=== PATIENT | female | born 1935 | race Caucasian/White ===

== ENCOUNTER 2017-09-08 21:05 | Inpatient (IN) | payer OTHER ==
[~2017-09-08] VITALS: Ht 157.5 cm; Wt 48.0 kg
[2017-09-08 21:44] VITALS: BP 160/73; PULSE 99; RESP 18; TEMP 98.6; O2SAT 100
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
[2017-09-09 01:42] LABS: AUTOMATED NEUTROPHIL # 6.7 TH/MM3 (1.8-7.7); BASOPHIL % 0.5 % (0.0-2.0); EOSINOPHIL # 0.1 TH/MM3 (0-0.4); EOSINOPHIL % 0.6 % (0.0-4.0); HEMATOCRIT 37.6 % (35.0-46.0); HEMO FLAGS DIFF FINAL; LYMPH % 19.4 % (9.0-44.0); LYMPHOCYTE # 1.8 TH/MM3 (1.0-4.8); MEAN CELL VOLUME 96.3 FL (80.0-100.0); MEAN CORPUSCULAR HGB CONC 33.3 % (32.0-36.0); MONO % 6.7 % (0.0-8.0); NEUT % 72.8 % (16.0-70.0); PLATELET COUNT 215 TH/MM3 (150-450); RED CELL DISTRIBUTION WIDTH 13.9 % (11.6-17.2); WHITE BLOOD COUNT 9.2 TH/MM3 (4.0-11.0)
[2017-09-09 02:13] VITALS: BP 118/56; PULSE 87; RESP 16; TEMP 98.9; O2SAT 98
[2017-09-09 02:22] LABS: ALT (GPT) 19 U/L (10-53); ANION GAP 7 MEQ/L (5-15); AST (GOT) 24 U/L (15-37); BICARBONATE 25.7 MEQ/L (21.0-32.0); BLOOD UREA NITROGEN 10 MG/DL (7-18); CHLORIDE 107 MEQ/L (98-107); GLOMERULAR FILTRATION RATE 100 ML/MIN (>89); POTASSIUM 3.5 MEQ/L (3.5-5.1); SODIUM (NA) 140 MEQ/L (136-145)
[2017-09-09 02:25] LABS: ALCOHOL LESS THAN 3 MG/DL (0-5)
[2017-09-09 02:32] LABS: ALKALINE PHOSPHATASE 61 U/L (45-117); TOTAL BILIRUBIN ADULT 0.2 MG/DL (0.2-1.0)
[2017-09-09 06:00] VITALS: BP 133/67; PULSE 83; RESP 18; TEMP 99.3; O2SAT 96
[2017-09-09 10:04] VITALS: BP 117/59; PULSE 72; RESP 16
[2017-09-09] MEDS ORDERED: MAGNESIUM HYDROXIDE SUSP 30 ML CUP PO PRN (11:30)
[2017-09-09] MEDS ORDERED: ACETAMINOPHEN 325 MG TAB PO PRN (11:30)
[2017-09-09] MEDS ORDERED: LORazepam 2 MG/ML VIAL IM PRN (11:30)
[2017-09-09] MEDS ORDERED: ALUMINUM/MAGNESIUM/SIMETH 30 ML CUP PO PRN (11:30)
[2017-09-09] MEDS ORDERED: LORazepam 0.5 MG TAB PO PRN (11:30)
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
[2017-09-09 18:24] VITALS: BP 108/53; PULSE 91; RESP 16; TEMP 98.2; O2SAT 95
[2017-09-10 05:57] VITALS: BP 122/58; PULSE 72; RESP 16; TEMP 97.3; O2SAT 97
--- NOTE | 2017-09-10 07:52 | HHI.PR ---
Subjective Remarks Complaints of some indigestion, did not eat in the morning yet. No n/v/d/c. Has a good appetite. No fever or chills. Pleasant Objective Vitals Vital Signs Date Time Temp Pulse Resp B/P (MAP) Pulse Ox O2 Delivery O2 Flow Rate FiO2 09/10/17 05:57 97.3 72 16 122/58 (79) 97 09/09/17 18:24 98.2 91 16 108/53 (71) 95 09/09/17 13:34 09/09/17 10:04 72 16 117/59 (78) Room Air I/O 09/09/17 09/09/17 09/09/17 09/10/17 09/10/17 09/10/17 07:00 15:00 23:00 07:00 15:00 23:00 Intake Total 840 ml 0 ml Balance 840 ml 0 ml Intake Oral 840 ml 0 ml # Voids 4 2 Result Diagram: 09/09/1712009/09/17 012 Objective Remarks GENERAL: This is a well-nourished, well-developed patient, in no apparent distress. CARDIOVASCULAR: Regular rate and rhythm without murmurs, gallops, or rubs. RESPIRATORY: Clear to auscultation. Breath sounds equal bilaterally. No wheezes , rales, or rhonchi. GASTROINTESTINAL: Abdomen soft, non-tender, nondistended. No hepato-splenomegaly , or palpable masses. No guarding. MUSCULOSKELETAL: Extremities without clubbing, cyanosis, or edema. No joint tenderness, effusion, or edema noted. No calf tenderness. Negative Homans sign bilaterally. NEUROLOGICAL: Awake and alert. Cranial nerves II through XII intact. Motor and sensory grossly within normal limits. Five out of 5 muscle strength in all muscle groups. Normal speech. A/P Problem List: (1) Medical clearance for psychiatric admission ICD Code: Z00.8 - Encounter for other general examination Status: Acute (2) Alzheimer's dementia with behavioral disturbance ICD Code: G30.8 - Other Alzheimer's disease; F02.81 - Dementia in other diseases classified elsewhere with behavioral disturbance (3) Dementia in other diseases classified elsewhere with behavioral disturbance ICD Code: F02.81 - Dementia in other diseases classified elsewhere with behavioral disturbance Assessment and Plan 82 yo F without significant PMH with Psychosis management per psych Poor dentition change diet to soft diet as patient can't eat. Add famotidine for dyspepsia Encourage PO intake Laxatives antiemetics as need . Do reconcile meds. patient says she is not taking any meds. Resume home meds as appropriate DVT ppx early ambulation Discussed Condition With patient, nurse Thank you for this consult, will follow along Dot Caballero MD Sep 10, 2017 07:52
[2017-09-10 09:31] LABS: AUTOMATED NEUTROPHIL # 4.3 TH/MM3 (1.8-7.7); BASOPHIL % 0.5 % (0.0-2.0); EOSINOPHIL # 0.1 TH/MM3 (0-0.4); EOSINOPHIL % 1.4 % (0.0-4.0); HEMATOCRIT 38.3 % (35.0-46.0); HEMO FLAGS DIFF FINAL; LYMPH % 28.8 % (9.0-44.0); LYMPHOCYTE # 2.1 TH/MM3 (1.0-4.8); MEAN CELL VOLUME 95.4 FL (80.0-100.0); MEAN CORPUSCULAR HEMOGLOBIN 32.6 PG (27.0-34.0); MEAN CORPUSCULAR HGB CONC 34.2 % (32.0-36.0); MONO % 8.6 % (0.0-8.0); NEUT % 60.7 % (16.0-70.0); PLATELET COUNT 215 TH/MM3 (150-450); RED BLOOD COUNT 4.01 MIL/MM3 (4.00-5.30); RED CELL DISTRIBUTION WIDTH 13.6 % (11.6-17.2); WHITE BLOOD COUNT 7.1 TH/MM3 (4.0-11.0)
[2017-09-10 10:05] LABS: ANION GAP 7 MEQ/L (5-15); AST (GOT) 24 U/L (15-37); BICARBONATE 26.8 MEQ/L (21.0-32.0); BLOOD UREA NITROGEN 6 MG/DL (7-18); CHLORIDE 103 MEQ/L (98-107); GLOMERULAR FILTRATION RATE 98 ML/MIN (>89); SODIUM (NA) 137 MEQ/L (136-145)
[2017-09-10] MEDS ORDERED: FAMOTIDINE 20 MG TAB PO ONE (10:30)
[2017-09-10 10:35] LABS: ALKALINE PHOSPHATASE 59 U/L (45-117); ALT (GPT) 14 U/L (10-53); HDL CHOLESTEROL 73.3 MG/DL (40.0-60.0); LDL CHOLESTEROL 97 MG/DL (0-99); TOTAL BILIRUBIN ADULT 0.4 MG/DL (0.2-1.0)
[2017-09-10 11:40] LABS: HEMOGLOBIN A1a 1.3 %; HEMOGLOBIN A1b 1.9 %; HEMOGLOBIN Ao 83.8 %; HEMOGLOBIN LA1C 2.1 %; HEMOGLOBIN P3 4.3 %
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
[2017-09-10] MEDS ORDERED: FAMO20TA2 PO (11:51)
--- NOTE | 2017-09-10 16:06 | EKG ---
Date Performed: 09/10/2017 Time Performed: 07:15:14 PTAGE: 82 years EKG: Sinus rhythm NORMAL ECG NO PREVIOUS TRACING DOCTOR: Gabriella Burr Interpretating Date/Time 09/10/2017 16:06:19
[2017-09-10] MEDS ORDERED: FAMOTIDINE 20 MG TAB PO SCH (21:00)
== END 2017-09-10 15:15 | disposition home or self-care (01) | DRG 882 ==
LOC: EDBD 21:05 → NEPJ 21:05 → NEDA 09-09 11:20 → H4EA 09-09 13:15
PROVIDERS: ADMIT Student in an Organized Health Care Education/Training Program; ATTEND Student in an Organized Health Care Education/Training Program
DX: F43.24 Adjustment disorder with disturbance of conduct (principal); G30.9 Alzheimer's disease, unspecified; F02.81 Dementia in other diseases classified elsewhere, unspecified severity, with behavioral disturbance; F29 Unspecified psychosis not due to a substance or known physiological condition; K30 Functional dyspepsia
CPT/HCPCS: 80053; 80061; 80307; 82306; 82607; 83036; 84443; 85025; 93005; 99285

== ENCOUNTER 2018-02-06 13:57 | Inpatient (IN) | payer MEDICAID, OTHER ==
[~2018-02-06] VITALS: Ht 160 cm; Wt 31.3 kg
[~2018-02-06 13:57] MED LIST: FAMO20TA2 PO
[2018-02-06 14:17] VITALS: BP 145/69; PULSE 92; RESP 20; TEMP 97.7; O2SAT 99
--- NOTE | 2018-02-06 16:11 | PD ---
HPI Chief Complaint: Medical Clearance Time Seen by Provider: 15:56 Travel History International Travel<30 days: No Contact w/Intl Traveler<30days: No Traveled to known affect area: No History of Present Illness HPI 82-year-old Welsh-speaking female originally from [place], is brought in by her granddaughters with history of dementia with increased agitation and aggressive behavior in her home. Patient has refused to be seen by doctors, and is currently not taking any medications. She fell today hitting the back of her head. There was no obvious loss of consciousness. Patient also hurt her left ring finger when she fell. It is noticed to have ecchymosis and decreased use secondary to pain. There is no other obvious injury at this time. No open wounds or abrasions Patient has not had recent fever, chills, nausea, vomiting, or other constitutional symptoms. She has no known drug allergies. PFSH Past Medical History Alzheimer's Disease: Yes Tetanus Vaccination: Unknown ?: Not Past Surgical History Surgical History: No Previous Surgery Social History Alcohol Use: No Tobacco Use: Yes Substance Use: No Allergies-Medications (Allergen,Severity, Reaction): Coded Allergies: No Known Allergies (Unverified , 09/08/17) Reported Meds & Prescriptions Reported Meds & Active Scripts Active Review of Systems Except as stated in HPI: all other systems reviewed are Neg General / Constitutional: No: Fever Eyes: No: Visual changes HENT: No: Headaches Cardiovascular: No: Chest Pain or Discomfort Respiratory: No: Shortness of Breath Gastrointestinal: No: Abdominal Pain Genitourinary: No: Dysuria Musculoskeletal: No: Pain Skin: No Rash Neurologic: Positive: Other (Dementia), No: Weakness, Dizziness, Syncope, Focal Abnormalities, Coordination Problem, Tremor, Ataxia, Headache, Change in Mentation, Slurred Speech, Paresthesia, Incontinence, Seizures, Sensory Disturbance Psychiatric: Positive: Other (Increasing combative behavior), No: Anxiety, Depression, Suicidal Ideations, Disorder of Thought, Mood Disorder, Substance Abuse, Homicidal Ideation Endocrine: No: Polydipsia Hematologic/Lymphatic: No: Easy Bruising Physical Exam Narrative GENERAL: Patient is evaluated with the help of her granddaughters. She appears somewhat anxious but otherwise in no obvious distress per SKIN: Warm and dry. Normal color. Normal turgor. Patient has a large "bump" to the posterior scalp without abrasion or open wound. Patient also has ecchymosis to the left proximal ring finger with mild swelling. HEAD: Normocephalic. Patient is a tender bump to the posterior scalp. No obvious bony deformity. EYES: Pupils equal and round. No scleral icterus. No injection or drainage. ENT: No nasal bleeding or discharge. Mucous membranes pink and moist. No dental injury. Pharynx is clear. Airway is patent. Patient appears to have a chronic right otitis externa. Left TM is normal. There is no facial pain with palpation. NECK: Trachea midline. No bony tenderness or step-off. Range of motion is fluid and nontender CARDIOVASCULAR: Regular rate and rhythm. No murmurs gallops or rubs RESPIRATORY: No accessory muscle use. Clear to auscultation. Breath sounds equal bilaterally. GASTROINTESTINAL: Abdomen soft, non-tender, nondistended. Hepatic and splenic margins not palpable. MUSCULOSKELETAL: Extremities without clubbing, cyanosis, or edema. No obvious deformities. Patient has guarded movement of the left hand and ring finger. There are no other significant findings. NEUROLOGICAL: Awake and alert. No obvious cranial nerve deficits. Motor grossly within normal limits. Five out of 5 muscle strength in the arms and legs. Normal speech. PSYCHIATRIC: Appropriate mood and affect; insight and judgment normal. Data Data Last Documented VS Vital Signs Date Time Temp Pulse Resp B/P (MAP) Pulse Ox O2 Delivery O2 Flow Rate FiO2 02/06/18 17:16 99 02/06/18 14:17 97.7 92 20 145/69 (94) Orders Orders Electrocardiogram (02/06/18 16:02) Complete Blood Count With Diff (02/06/18 16:02) Comprehensive Metabolic Panel (02/06/18 16:02) Prothrombin Time / Inr (Pt) (02/06/18 16:02) Act Partial Throm Time (Ptt) (02/06/18 16:02) Thyroid Stimulating Hormone (02/06/18 16:02) Urinalysis - C+S If Indicated (02/06/18 16:02) Chest, Single Ap (02/06/18 16:02) Ct Brain W/O Iv Contrast(Rout) (02/06/18 16:02) Blood Glucose (02/06/18 16:02) Ecg Monitoring (02/06/18 16:02) Iv Access Insert/Monitor (02/06/18 16:02) Oximetry (02/06/18 16:02) Sodium Chloride 0.9% Flush (Ns Flush) (02/06/18 16:15) Lorazepam (Ativan) (02/06/18 16:15) Urine Culture (02/06/18 17:10) Lorazepam Inj (Ativan Inj) (02/06/18 18:45) Restraints Non-Violent KORTNEY.Q3H (02/06/18 18:45) Consult Neurosurgery (02/06/18 ) Admit Order (Ed Use Only) (02/06/18 19:08) Labs Laboratory Tests Test 02/06/18 17:10 White Blood Count 8.8 TH/MM3 Red Blood Count 3.46 MIL/MM3 Hemoglobin 11.4 GM/DL Hematocrit 33.2 % Mean Corpuscular Volume 96.1 FL Mean Corpuscular Hemoglobin 33.1 PG Mean Corpuscular Hemoglobin Concent 34.4 % Red Cell Distribution Width 13.2 % Platelet Count 197 TH/MM3 Mean Platelet Volume 8.7 FL Neutrophils (%) (Auto) 75.6 % Lymphocytes (%) (Auto) 15.5 % Monocytes (%) (Auto) 8.4 % Eosinophils (%) (Auto) 0.3 % Basophils (%) (Auto) 0.2 % Neutrophils # (Auto) 6.7 TH/MM3 Lymphocytes # (Auto) 1.4 TH/MM3 Monocytes # (Auto) 0.7 TH/MM3 Eosinophils # (Auto) 0.0 TH/MM3 Basophils # (Auto) 0.0 TH/MM3 CBC Comment DIFF FINAL Differential Comment Prothrombin Time 10.3 SEC Prothromb Time International Ratio 1.0 RATIO Activated Partial Thromboplast Time 23.3 SEC Urine Color LIGHT-YELLOW Urine Turbidity CLEAR Urine pH 6.0 Urine Specific [place] 1.004 Urine Protein NEG mg/dL Urine Glucose (UA) NEG mg/dL Urine Ketones NEG mg/dL Urine Occult Blood SMALL Urine Nitrite NEG Urine Bilirubin NEG Urine Urobilinogen LESS THAN 2.0 MG/DL Urine Leukocyte Esterase NEG Urine RBC 2 /hpf Urine WBC LESS THAN 1 /hpf Urine Bacteria OCC /hpf Urine Mucus FEW /lpf Microscopic Urinalysis Comment CATH-CULTURE IND Blood Urea Nitrogen 8 MG/DL Creatinine 0.60 MG/DL Random Glucose 119 MG/DL Total Protein 6.3 GM/DL Albumin 3.5 GM/DL Calcium Level 9.3 MG/DL Alkaline Phosphatase 65 U/L Aspartate Amino Transf (AST/SGOT) 35 U/L Alanine Aminotransferase (ALT/SGPT) 25 U/L Total Bilirubin 0.2 MG/DL Sodium Level 143 MEQ/L Potassium Level 3.3 MEQ/L Chloride Level 112 MEQ/L Carbon Dioxide Level 24.3 MEQ/L Anion Gap 7 MEQ/L Estimat Glomerular Filtration Rate 96 ML/MIN Thyroid Stimulating Hormone 3rd Gen 1.160 uIU/ML [facility] Medical Decision Making Medical Screen Exam Complete: Yes Emergency Medical Condition: Yes Differential Diagnosis Fall with head injury. Left finger contusion. Possible fracture. Dementia with combative behavior. Narrative Course Patient is medically stable at time of exam. Labs ordered including CBC, CMP, urinalysis, coagulation studies, and TSH. Chest x-ray and CT of the brain is ordered. EKG is ordered. Patient is given 0.5 mg lorazepam p.o. EKG shows sinus rhythm with inferior myocardial infarction of indeterminate age. No acute ST changes are noted. Chest x-ray shows no acute findings per radiology. CT scan shows: CONCLUSION: 1. Small linear area of suspected subarachnoid hemorrhage seen in the right inferior parietal lobe. 2. Atrophy with expansion of the extra axial spaces. 3. Nasal bone fractures. The age of these fractures is not known. Call was placed to Dr. Chapman, and the patient's findings were discussed. He stated he would review the CT scan and call me back with disposition recommendations. Dr. Chapman came and saw the patient and he recommended keeping the patient overnight for observation. Calls placed to the block hand who recommended admission to the floor rather than the ICU. Patient was discussed with Dr. Garcia who agreed to admit the patient overnight. Diagnosis Primary Impression: Fall Qualified Codes: W19.XXXA - Unspecified fall, initial encounter Additional Impressions: SAH (subarachnoid hemorrhage) Alzheimer's dementia with behavioral disturbance Qualified Codes: G30.9 - Alzheimer's disease, unspecified; F02.81 - Dementia in other diseases classified elsewhere with behavioral disturbance Admitting Information Admitting Physician Requests: Admit Condition: Stable Lebron Best Feb 06, 2018 16:11
[2018-02-06] MEDS ORDERED: LORazepam 0.5 MG TAB PO ONE (16:15)
[2018-02-06] MEDS ORDERED: SODIUM CHLORIDE 0.9% FLUSH 10 ML FLUSH IV FLUSH PRN ×2 (16:15→19:15)
--- NOTE | 2018-02-06 16:43 | RADRPT ---
EXAM DATE/TIME: 02/06/2018 16:18 [facility] COMPARISON: No previous studies available for comparison. INDICATIONS : Chest Pain MEDICAL HISTORY : None. SURGICAL HISTORY : None. ENCOUNTER: Initial ACUITY: 1 day PAIN SCORE: 6/10 LOCATION: chest FINDINGS: A single view of the chest demonstrates the lungs to be symmetrically aerated without evidence of mas s, infiltrate or effusion. The cardiomediastinal contours are unremarkable. Osseous structures are intact. CONCLUSION: No acute disease. Kevin Maurer MD on February 06, 2018 at 16:40 Board Certified Radiologist. This report was verified electronically.
[2018-02-06 17:16] VITALS: O2SAT 99
--- NOTE | 2018-02-06 17:44 | RADRPT ---
EXAM DATE/TIME: 02/06/2018 16:43 [facility] COMPARISON: No previous studies available for comparison. INDICATIONS : Trauma, fall today. Posterior cephalgia. RADIATION DOSE: 46.29 CTDIvol (mGy) MEDICAL HISTORY : Alzheimer's SURGICAL HISTORY : None. ENCOUNTER: Initial ACUITY: 1 day PAIN SCALE: 7/10 LOCATION: Bilateral occipital head TECHNIQUE: Multiple contiguous axial images were obtained of the head. Using automated exposure control and adj ustment of the mA and/or kV according to patient size, radiation dose was kept as low as reasonably a chievable to obtain optimal diagnostic quality images. DICOM format image data is available electro nically for review and comparison. FINDINGS: CEREBRUM: There is a small linear area of high density material seen in the right posterior inferior parietal l obe likely related to a small focal areas of subarachnoid hemorrhage. The ventricles are normal for age. No evidence of midline shift, mass lesion, or acute infarction. There is expansion of the extr a-axial spaces over the frontal lobes. POSTERIOR FOSSA: The cerebellum and brainstem are intact. The 4th ventricle is midline. The cerebellopontine angle i s unremarkable. EXTRACRANIAL: The visualized portion of the orbits is intact. SKULL: The calvaria is intact. No evidence of skull fracture. There appears to be nasal bone fractures, sof t tissue swelling is not seen. It should be correlated if the patient has an acute injury in this reg ion. There is increased density in the right middle ear and in the temporal air cells. The mastoid ai r cells are not well-aerated on either side. CONCLUSION: 1. Small linear area of suspected subarachnoid hemorrhage seen in the right inferior parietal lobe. 2. Atrophy with expansion of the extra axial spaces. 3. Nasal bone fractures. The age of these fractures is not known. Kevin Maurer MD on February 06, 2018 at 17:37 Board Certified Radiologist. This report was verified electronically.
[2018-02-06 17:45] LABS: AUTOMATED NEUTROPHIL # 6.7 TH/MM3 (1.8-7.7); BASOPHIL % 0.2 % (0.0-2.0); EOSINOPHIL % 0.3 % (0.0-4.0); HEMATOCRIT 33.2 % (35.0-46.0); HEMOGLOBIN 11.4 GM/DL (11.6-15.3); LYMPH % 15.5 % (9.0-44.0); LYMPHOCYTE # 1.4 TH/MM3 (1.0-4.8); MEAN CELL VOLUME 96.1 FL (80.0-100.0); MEAN CORPUSCULAR HEMOGLOBIN 33.1 PG (27.0-34.0); MEAN CORPUSCULAR HGB CONC 34.4 % (32.0-36.0); MEAN PLATELET VOLUME 8.7 FL (7.0-11.0); MONO % 8.4 % (0.0-8.0); MONOCYTE # 0.7 TH/MM3 (0-0.9); NEUT % 75.6 % (16.0-70.0); PLATELET COUNT 197 TH/MM3 (150-450); RED BLOOD COUNT 3.46 MIL/MM3 (4.00-5.30); RED CELL DISTRIBUTION WIDTH 13.2 % (11.6-17.2); WHITE BLOOD COUNT 8.8 TH/MM3 (4.0-11.0)
[2018-02-06 17:47] LABS: BACTERIA, URINE OCC /hpf; BILIRUBIN, URINE NEG (NEG); BLOOD, URINE SMALL (NEG); GLUCOSE,URINE NEG (NEG); KETONE, URINE NEG (NEG); MUCUS URINE FEW /lpf (OCC); NITRITE,URINE NEG (NEG); URINE COLOR LIGHT-YELLOW (YELLW/STRAW); URINE LEUKOCYTE ESTERASE NEG (NEG)
[2018-02-06 17:52] LABS: PROTHROMBIN TIME - PATIENT 10.3 SEC (9.8-11.6)
[2018-02-06 18:11] LABS: ALBUMIN 3.5 GM/DL (3.4-5.0); AST (GOT) 35 U/L (15-37); BICARBONATE 24.3 MEQ/L (21.0-32.0); BLOOD UREA NITROGEN 8 MG/DL (7-18); CALCIUM 9.3 MG/DL (8.5-10.1); CHLORIDE 112 MEQ/L (98-107); GLOMERULAR FILTRATION RATE 96 ML/MIN (>89); GLUCOSE,RANDOM 119 MG/DL (74-106); SODIUM (NA) 143 MEQ/L (136-145)
[2018-02-06 18:22] LABS: ALKALINE PHOSPHATASE 65 U/L (45-117); ALT (GPT) 25 U/L (10-53); TOTAL BILIRUBIN ADULT 0.2 MG/DL (0.2-1.0); TOTAL PROTEIN 6.3 GM/DL (6.4-8.2)
[2018-02-06] MEDS ORDERED: LORazepam 2 MG/ML VIAL IM ONE (18:45)
--- NOTE | 2018-02-06 19:04 | MB ---
cc: ,Emmanuel Chapman DATE: 02/06/2018 CHIEF COMPLAINT: Fall. HISTORY OF PRESENT ILLNESS: This is an 82-year-old female patient with a long history of dementia with increasing agitation and aggressive behavior in her home. The patient apparently fell today, striking the back of her head. There was no obvious loss of consciousness. She was brought to the ER for evaluation. CT scan was performed, which was abnormal, and neurosurgery consult was placed. PAST MEDICAL HISTORY: Remarkable for dementia. No other medical problems are noted. PAST SURGICAL HISTORY: No surgical history is available. SOCIAL HISTORY: Indicates use of tobacco. ALLERGIES: SHE HAS NO KNOWN ALLERGIES. MEDICATIONS: She does not take any active medications. REVIEW OF SYSTEMS: Not obtainable. PHYSICAL EXAMINATION: VITAL SIGNS: Shows a blood pressure 145/69, respirations 20, pulse of 92, temperature of 97.7. GENERAL: Shows elderly female, thin, somewhat agitated. HEENT: Shows evidence of a small scalp contusion posteriorly. NECK: Supple with good carotid pulses bilaterally. CHEST: Symmetric. LUNGS: Clear. HEART: Shows a regular rhythm with normal heart sounds. ABDOMEN: Soft and nontender. EXTREMITIES: Show bruising over the right taylor. NEUROLOGIC: The patient is alert and awake. Her speech is fluent. She is confused. She is somewhat agitated. She tends to follow some commands with difficulty. Cranial nerves 2-12 appear intact. Motor exam is 5+/5. Sensory exam is intact to touch and deep tendon reflexes are trace at all sites. DIAGNOSTIC DATA: Review of a CT scan of the brain shows evidence of a very mild amount of subarachnoid hemorrhage posteriorly in the parietal lobe. No mass effect is appreciated. OVERALL IMPRESSION: Traumatic subarachnoid hemorrhage, small. PLAN: Admit the patient for further evaluation and observation to the intensive care unit with repeat CT in the morning. Emmanuel ZHANG/LONA , 06:51 PM , 07:03 PM SY
[2018-02-06] MEDS ORDERED: ONDANSETRON HCL 4 MG/2 ML VIAL IVP PRN (19:15)
[2018-02-06] MEDS ORDERED: SENNOSIDES 8.6 MG TAB PO PRN (19:15)
[2018-02-06] MEDS ORDERED: MAGNESIUM HYDROXIDE SUSP 30 ML CUP PO PRN (19:15)
[2018-02-06 19:30] VITALS: BP 137/85; PULSE 78; RESP 20; O2SAT 100
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
[2018-02-06 20:00] VITALS: BP 161/82; PULSE 76; RESP 20; O2SAT 100
[2018-02-06 20:30] VITALS: BP 148/76; PULSE 72; RESP 20; O2SAT 100
[2018-02-06] MEDS: DOCUSATE SODIUM 50 MG/SENNA 8.6 MG TAB PO SCH (21:00)
[2018-02-06 21:17] VITALS: BP 135/66; PULSE 76; RESP 18; TEMP 98.6; O2SAT 98
[2018-02-06] MEDS: SODIUM CHLORIDE 0.9% FLUSH 10 ML FLUSH IV FLUSH SCH (21:23)
[2018-02-07] VITALS: BP 123/60; PULSE 68; RESP 18; TEMP 99.4; O2SAT 98
[2018-02-07 04:45] VITALS: BP 125/60; PULSE 75; RESP 18; TEMP 97.9; O2SAT 97
[2018-02-07 08:00] VITALS: BP 127/60; PULSE 79; RESP 17; TEMP 97.7; O2SAT 97
[2018-02-07 08:12] LABS: BASOPHIL % 0.4 % (0.0-2.0); EOSINOPHIL % 0.2 % (0.0-4.0); HEMATOCRIT 35.7 % (35.0-46.0); HEMOGLOBIN 12.3 GM/DL (11.6-15.3); LYMPH % 20.3 % (9.0-44.0); LYMPHOCYTE # 1.7 TH/MM3 (1.0-4.8); MEAN CORPUSCULAR HEMOGLOBIN 32.7 PG (27.0-34.0); MEAN CORPUSCULAR HGB CONC 34.4 % (32.0-36.0); MEAN PLATELET VOLUME 8.8 FL (7.0-11.0); MONO % 6.8 % (0.0-8.0); MONOCYTE # 0.6 TH/MM3 (0-0.9); NEUT % 72.3 % (16.0-70.0); PLATELET COUNT 199 TH/MM3 (150-450); RED BLOOD COUNT 3.76 MIL/MM3 (4.00-5.30); WHITE BLOOD COUNT 8.3 TH/MM3 (4.0-11.0)
[2018-02-07 08:31] LABS: ALBUMIN 3.8 GM/DL (3.4-5.0); AST (GOT) 26 U/L (15-37); BICARBONATE 25.6 MEQ/L (21.0-32.0); BLOOD UREA NITROGEN 7 MG/DL (7-18); CALCIUM 9.7 MG/DL (8.5-10.1); CHLORIDE 109 MEQ/L (98-107); CREATININE 0.61 MG/DL (0.50-1.00); GLOMERULAR FILTRATION RATE 94 ML/MIN (>89); GLUCOSE,RANDOM 112 MG/DL (74-106); SODIUM (NA) 141 MEQ/L (136-145)
[2018-02-07 08:33] LABS: ALT (GPT) 22 U/L (10-53)
[2018-02-07 08:35] LABS: ALKALINE PHOSPHATASE 70 U/L (45-117); TOTAL BILIRUBIN ADULT 0.4 MG/DL (0.2-1.0); TOTAL PROTEIN 6.8 GM/DL (6.4-8.2)
[2018-02-07] MEDS: DOCUSATE SODIUM 50 MG/SENNA 8.6 MG TAB PO SCH ×2 (08:41→21:00)
[2018-02-07] MEDS: ACETAMINOPHEN 325 MG TAB PO PRN (08:41)
[2018-02-07] MEDS: SODIUM CHLORIDE 0.9% FLUSH 10 ML FLUSH IV FLUSH SCH ×2 (08:41→21:08)
--- NOTE | 2018-02-07 09:18 | RADRPT ---
EXAM DATE/TIME: 02/07/2018 08:13 [place] COMPARISON: CT BRAIN W/O CONTRAST, February 06, 2018, 16:43. INDICATIONS : Fall yesterday, hemorrhage RADIATION DOSE: 56.35 CTDIvol (mGy) MEDICAL HISTORY : Alzheimers SURGICAL HISTORY : None. ENCOUNTER: Subsequent ACUITY: 2 days PAIN SCALE: 4/10 LOCATION: cranial TECHNIQUE: Multiple contiguous axial images were obtained of the head. Using automated exposure control and adj ustment of the mA and/or kV according to patient size, radiation dose was kept as low as reasonably a chievable to obtain optimal diagnostic quality images. DICOM format image data is available electro nically for review and comparison. FINDINGS: CEREBRUM: There is severe generalized atrophy. Ventricles are normal in size. There is stable high density isabel g the right parietal mid convexity sulci. Otherwise, no midline shift, mass lesion, or acute infarcti on. No extra-axial fluid collections are seen. POSTERIOR FOSSA: The cerebellum and brainstem demonstrate no acute finding. The 4th ventricle is midline. The cerebe llopontine angle is unremarkable. EXTRACRANIAL: Visualized sinuses are clear. Nasal bones have a stable appearance. SKULL: The calvaria is intact. No evidence of skull fracture. CONCLUSION: 1. Stable noncontrast head CT with persistent high density along a right parietal sulcus suspicious f or subarachnoid hemorrhage. No new blood products are present. 2. Stable severe generalized atrophy. Kevin Encarnacion MD on February 07, 2018 at 9:10 Board Certified Radiologist. This report was verified electronically.
[2018-02-07] MEDS: LORazepam 2 MG/ML VIAL IV PUSH PRN ×3 (10:33→21:09)
--- NOTE | 2018-02-07 12:40 | HHI.NSPN ---
(Arnulfo Flynn) History Chief Complaint: Not verbalizing. (Arnulfo Flynn) Interval History This is an 82-year-old female patient with a long history of dementia with increasing agitation and aggressive behavior in her home. The patient apparently fell today, striking the back of her head. There was no obvious loss of consciousness. She was brought to the ER for evaluation. CT scan was performed, which was abnormal, and neurosurgery consult was placed. 02/07/18: Pt opens eyes to voice briefly. Was told she just received Ativan for restlessness. She is not verbalizing. She follows some simple commands in Scottish. (Arnulfo Flynn) System Review Comments Not able to obtain given clinical condition. (Arnulfo Flynn) Exam Results Vital Signs Date Time Temp Pulse Resp B/P (MAP) Pulse Ox O2 Delivery O2 Flow Rate FiO2 02/07/18 08:00 97.7 79 17 127/60 (82) 97 02/06/18 20:30 Room Air (Arnulfo Flynn) Physical Examination General: Pt awakens to voice briefly. Eyes: Pupils equal. Sclera anicteric. Resp: CTA bilaterally Heart: NSR no murmurs Abd: Soft positive bs Skin: No cyanosis or erythema Muscle: Moves all 4 extremities spontaneously. Moves toes to command. Neuro: Pt awakens to voice. Pupils 3mm bilaterally reactive bilaterally. Follows some simple commands in Scottish. Pt lethargic but was told she got Ativan for agitation. (Arnulfo Flynn) Lab, Micro, Other Results Last Impressions Head CT 02/07/18 0600 Signed Impressions: Service Date/Time: Wednesday, February 07, 2018 08:13 - CONCLUSION: 1. Stable noncontrast head CT with persistent high density along a right parietal sulcus suspicious for subarachnoid hemorrhage. No new blood products are present. 2. Stable severe generalized atrophy. Kevin Encarnacion MD Chest X-Ray 02/06/18 1602 Signed Impressions: Service Date/Time: Tuesday, February 06, 2018 16:18 - CONCLUSION: No acute disease. Kevin Maurer MD Laboratory Tests Test 02/06/18 17:10 02/07/18 07:36 White Blood Count 8.8 TH/MM3 8.3 TH/MM3 Red Blood Count 3.46 MIL/MM3 3.76 MIL/MM3 Hemoglobin 11.4 GM/DL 12.3 GM/DL Hematocrit 33.2 % 35.7 % Mean Corpuscular Volume 96.1 FL 95.0 FL Mean Corpuscular Hemoglobin 33.1 PG 32.7 PG Mean Corpuscular Hemoglobin Concent 34.4 % 34.4 % Red Cell Distribution Width 13.2 % 13.0 % Platelet Count 197 TH/MM3 199 TH/MM3 Mean Platelet Volume 8.7 FL 8.8 FL Neutrophils (%) (Auto) 75.6 % 72.3 % Lymphocytes (%) (Auto) 15.5 % 20.3 % Monocytes (%) (Auto) 8.4 % 6.8 % Eosinophils (%) (Auto) 0.3 % 0.2 % Basophils (%) (Auto) 0.2 % 0.4 % Neutrophils # (Auto) 6.7 TH/MM3 6.0 TH/MM3 Lymphocytes # (Auto) 1.4 TH/MM3 1.7 TH/MM3 Monocytes # (Auto) 0.7 TH/MM3 0.6 TH/MM3 Eosinophils # (Auto) 0.0 TH/MM3 0.0 TH/MM3 Basophils # (Auto) 0.0 TH/MM3 0.0 TH/MM3 CBC Comment DIFF FINAL DIFF FINAL Differential Comment Prothrombin Time 10.3 SEC Prothromb Time International Ratio 1.0 RATIO Activated Partial Thromboplast Time 23.3 SEC Urine Color LIGHT-YELLOW Urine Turbidity CLEAR Urine pH 6.0 Urine Specific [place] 1.004 Urine Protein NEG mg/dL Urine Glucose (UA) NEG mg/dL Urine Ketones NEG mg/dL Urine Occult Blood SMALL Urine Nitrite NEG Urine Bilirubin NEG Urine Urobilinogen LESS THAN 2.0 MG/DL Urine Leukocyte Esterase NEG Urine RBC 2 /hpf Urine WBC LESS THAN 1 /hpf Urine Bacteria OCC /hpf Urine Mucus FEW /lpf Microscopic Urinalysis Comment CATH-CULTURE IND Blood Urea Nitrogen 8 MG/DL 7 MG/DL Creatinine 0.60 MG/DL 0.61 MG/DL Random Glucose 119 MG/DL 112 MG/DL Total Protein 6.3 GM/DL 6.8 GM/DL Albumin 3.5 GM/DL 3.8 GM/DL Calcium Level 9.3 MG/DL 9.7 MG/DL Alkaline Phosphatase 65 U/L 70 U/L Aspartate Amino Transf (AST/SGOT) 35 U/L 26 U/L Alanine Aminotransferase (ALT/SGPT) 25 U/L 22 U/L Total Bilirubin 0.2 MG/DL 0.4 MG/DL Sodium Level 143 MEQ/L 141 MEQ/L Potassium Level 3.3 MEQ/L 3.5 MEQ/L Chloride Level 112 MEQ/L 109 MEQ/L Carbon Dioxide Level 24.3 MEQ/L 25.6 MEQ/L Anion Gap 7 MEQ/L 6 MEQ/L Estimat Glomerular Filtration Rate 96 ML/MIN 94 ML/MIN Thyroid Stimulating Hormone 3rd Gen 1.160 uIU/ML (Arnulfo Flynn) Medical Decision Making Impression and Plan A: 82 y/o FM with small amount of subarachnoid hemorrhage posteriorly in the parietal lobe. No mass effect is appreciated. OVERALL IMPRESSION: Traumatic subarachnoid hemorrhage, small. PLAN: Continue to monitor Neuro exam Continue with current care DVT prophylaxis with SCDs. (Arnulfo Flynn) Attending Statement The exam, history, and the medical decision-making described in the above note were completed with the assistance of the mid-level provider. I reviewed and agree with the findings presented. I attest that I had a [id number] encounter with the patient on the same day, and personally performed and documented my assessment and findings in the medical record. Stable follow-up CT scan examination. Continue with conservative treatment measures and observation. (Robin Patel MD) Arnulfo Flynn Feb 07, 2018 12:40 Robin Patel MD Feb 07, 2018 13:48
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
[2018-02-07 16:28] VITALS: BP 140/69; PULSE 90; RESP 20; TEMP 99.5; O2SAT 95
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
[2018-02-07] MEDS: QUEtiapine FUMARATE 25 MG TAB PO SCH (21:05)
[2018-02-07] MEDS: cefTRIAXone INJ 1,000 MG in SODIUM CHLORIDE 0.9% INJ 100 ML IV SCH (21:07)
--- NOTE | 2018-02-07 21:14 | EKG ---
Date Performed: 02/06/2018 Time Performed: 17:34:38 PTAGE: 82 years EKG: Sinus rhythm INFERIOR MYOCARDIAL INFARCTION ABNORMAL ECG PREVIOUS TRACING : 09/10/2017 07.15 Since the previous tracing, no significant change noted DOCTOR: Delvin Malave Interpretating Date/Time 02/07/2018 21:13:16
[2018-02-07 21:50] VITALS: BP 123/88; PULSE 86; RESP 19; TEMP 98.8; O2SAT 96
[2018-02-08] VITALS: BP 118/89; PULSE 80; RESP 18; TEMP 98; O2SAT 96
[2018-02-08 04:00] VITALS: BP 125/89; PULSE 89; RESP 19; TEMP 98; O2SAT 96
[2018-02-08 08:00] VITALS: BP 136/74; PULSE 90; RESP 20; TEMP 98.1; O2SAT 98
[2018-02-08] MEDS: SODIUM CHLORIDE 0.9% FLUSH 10 ML FLUSH IV FLUSH SCH ×2 (09:00→22:01)
[2018-02-08] MEDS: DOCUSATE SODIUM 50 MG/SENNA 8.6 MG TAB PO SCH ×2 (09:55→21:00)
[2018-02-08] MEDS: QUEtiapine FUMARATE 25 MG TAB PO SCH ×2 (09:55→22:01)
[2018-02-08 12:00] VITALS: BP 166/85; PULSE 99; RESP 20; TEMP 99.1; O2SAT 97
--- NOTE | 2018-02-08 13:55 | HHI.NSPN ---
(Arnulfo Flynn) History Chief Complaint: Not verbalizing. (Arnulfo Flynn) Interval History This is an 82-year-old female patient with a long history of dementia with increasing agitation and aggressive behavior in her home. The patient apparently fell today, striking the back of her head. There was no obvious loss of consciousness. She was brought to the ER for evaluation. CT scan was performed, which was abnormal, and neurosurgery consult was placed. 02/07/18: Pt opens eyes to voice briefly. Was told she just received Ativan for restlessness. She is not verbalizing. She follows some simple commands in Iranian. 02/08/18: Pt more awake today. She follows commands in Iranian for me. Not verbalizing. (Arnulfo Flynn) System Review Comments Not able to obtain as pt is not verbalizing to any questions. (Arnulfo Flynn) Exam Results Vital Signs Date Time Temp Pulse Resp B/P (MAP) Pulse Ox O2 Delivery O2 Flow Rate FiO2 02/08/18 12:00 99.1 99 20 166/85 (112) 97 02/06/18 20:30 Room Air Intake and Output 02/08/18 02/08/18 02/08/18 07:59 15:59 23:59 Intake Total 0 ml Balance 0 ml (Arnulfo Flynn) Physical Examination General: Pt awake today. Eyes: Pupils equal. Sclera anicteric. Resp: CTA bilaterally Heart: NSR no murmurs Abd: Soft positive bs Skin: No cyanosis or erythema Muscle: Moves all 4 extremities spontaneously. Follows commands in Iranian. Neuro: Pt awakens to voice. Pupils 3mm bilaterally reactive bilaterally. Follows commands in Iranian. Pt more awake today. Not verbalizing. (Arnulfo Flynn) Lab, Micro, Other Results Last Impressions Head CT 02/07/18 0600 Signed Impressions: Service Date/Time: Wednesday, February 07, 2018 08:13 - CONCLUSION: 1. Stable noncontrast head CT with persistent high density along a right parietal sulcus suspicious for subarachnoid hemorrhage. No new blood products are present. 2. Stable severe generalized atrophy. Kevin Encarnacion MD Chest X-Ray 02/06/18 1602 Signed Impressions: Service Date/Time: Tuesday, February 06, 2018 16:18 - CONCLUSION: No acute disease. Kevin Maurer MD 02/08/18 02/08/18 02/09/18 14:59 22:59 06:59 # Voids 2 (Arnulfo Flynn) Medical Decision Making Impression and Plan A: 82 y/o FM with small amount of subarachnoid hemorrhage posteriorly in the parietal lobe. No mass effect is appreciated. OVERALL IMPRESSION: Traumatic subarachnoid hemorrhage, small. PLAN: Continue to monitor Neuro exam Continue with current care DVT prophylaxis with SCDs. (Arnulfo Flynn) Attending Statement The exam, history, and the medical decision-making described in the above note were completed with the assistance of the mid-level provider. I reviewed and agree with the findings presented. I attest that I had a [id number] encounter with the patient on the same day, and personally performed and documented my assessment and findings in the medical record. (Robin Patel MD) Arnulfo Flynn February 08, 2018 13:55 Robin Patel MD February 08, 2018 15:49
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
[2018-02-08 16:00] VITALS: BP 150/82; PULSE 103; RESP 20; TEMP 98; O2SAT 96
[2018-02-08] MEDS: DRONABINOL 2.5 MG CAP PO SCH (16:00)
[2018-02-08 20:00] VITALS: BP 177/92; PULSE 97; RESP 17; TEMP 98.3; O2SAT 94
[2018-02-08] MEDS: cefTRIAXone INJ 1,000 MG in SODIUM CHLORIDE 0.9% INJ 100 ML IV SCH (22:01)
[2018-02-09] VITALS (9 sets, daily range): BP systolic 129–160; BP diastolic 73–80; PULSE 98–107; RESP 16–22; TEMP 97.5–98.4; O2SAT 94–100
[2018-02-09] MEDS ORDERED: RESP: ALBUTEROL 2.5 MG/IPRATROPIUM 0.5 MG NEB (PRN) NEB (03:15)
[2018-02-09] MEDS: DEXTROSE 5% IN WATE 1000ML INJ 1,000 ML IV SCH ×2 (03:30→22:35)
[2018-02-09] MEDS ORDERED: RESP: ACETYLCYSTEINE 10% 10 ML NEB NEB PRN (03:45)
--- NOTE | 2018-02-09 03:54 | HHI.PR ---
Addendum to Inpatient Note Addendum Reason: Additional Documentation Additional Information S: Resident team received call at 0310 about [facility]. Went to evaluate pt who is a 82yo Persian-speaking only female with a PMH of violent dementia admitted for traumatic subarachnoid hemorrhage. She was having increasing shortness of breath and increased respiratory rate per nursing staff. They state that she chronically mouth breathes and had dry mucous membranes. Respiratory staff suctioned thick sputum and blood. Respiratory staff stated that pt has dry mucous plugging in her lower pharynx. Nursing staff also stated that she has not eaten or drank anything in 3 days and that it is hard to try to get her to do so. O: VS: 173/76, heart rate 104, satting 97% on 2 L nasal cannula General: Thin elderly female sitting up in bed in soft restraints breathing through her mouth, in no acute distress Skin: Dry. Tented Throat: Dry mucous membranes Cardiovascular: RRR, no murmurs, rubs, or gallops detected Respiratory: CTAB with upper airway transmission Abdomen: Soft, nontender, nondistended next A/P: Dehydration -D5W 1 L at 60 mL/hr was started before our arrival Tachypnea- pt satting well on NC -Witnessed respiratory staff suction large thick brownish plug of mucus from patient's oropharynx along with blood -Ordered Mucomyst neb due to thick sputum and mucus plugging per respiratory -Wet reading of CXR showed hyperinflation of lungs SDW Ashley Sarabia MD R1 February 09, 2018 03:54
--- NOTE | 2018-02-09 04:15 | RADRPT ---
EXAM DATE/TIME: 02/09/2018 03:15 [facility] COMPARISON: CHEST SINGLE AP, February 06, 2018, 16:18. INDICATIONS : Shortness of breath. MEDICAL HISTORY : None. SURGICAL HISTORY : None. ENCOUNTER: Subsequent ACUITY: 4 - 6 days PAIN SCORE: Non-responsive. LOCATION: Bilateral chest FINDINGS: A single view of the chest demonstrates the lungs to be symmetrically hyperaerated. No acute infiltra te or effusion. Heart size is normal. Osseous structures are intact. CONCLUSION: Hyperinflation with no acute cardiopulmonary process. Joe Esteves MD on February 09, 2018 at 4:13 Board Certified Radiologist. This report was verified electronically.
[2018-02-09] MEDS: RESP: ALBUTEROL 2.5 MG/IPRATROPIUM 0.5 MG NEB (SCH) NEB ×4 (04:38→21:22)
[2018-02-09] MEDS: SODIUM CHLORIDE 0.9% FLUSH 10 ML FLUSH IV FLUSH SCH ×2 (09:00→21:00)
--- NOTE | 2018-02-09 10:04 | HHI.NSPN ---
(Arnulfo Flynn) History Chief Complaint: Not verbalizing. (Arnulfo Flynn) Interval History This is an 82-year-old female patient with a long history of dementia with increasing agitation and aggressive behavior in her home. The patient apparently fell today, striking the back of her head. There was no obvious loss of consciousness. She was brought to the ER for evaluation. CT scan was performed, which was abnormal, and neurosurgery consult was placed. 02/07/18: Pt opens eyes to voice briefly. Was told she just received Ativan for restlessness. She is not verbalizing. She follows some simple commands in Indonesian. 02/08/18: Pt more awake today. She follows commands in Indonesian for me. Not verbalizing. 02/09/18: Pt awake and alert. She tries to get out of bed and has restraints to UEs and requires reminders to stay in bed. Denies headache or nausea. follows simple commands. (Arnulfo Flynn) Review of Systems General: Negative for: fever, chills, insomnia Respiratory: Negative for: shortness of breath, cough, sputum Cardiovascular: Negative for: chest pain Gastrointestinal: Negative for: nausea, vomitting, diarrhea, constipation ( Arnulfo Flynn) Exam Results Vital Signs Date Time Temp Pulse Resp B/P (MAP) Pulse Ox O2 Delivery O2 Flow Rate FiO2 02/09/18 08:13 98.2 107 18 152/79 (103) 98 02/09/18 03:15 5.00 02/09/18 03:00 Nasal Cannula (Arnulfo Flynn) Physical Examination General: Pt awake and alert. Attempts to get oob. Eyes: Pupils equal. Sclera anicteric. Resp: CTA bilaterally Heart: NSR no murmurs Abd: Soft positive bs Skin: No cyanosis or erythema Muscle: Moves all 4 extremities spontaneously. Follows commands in Indonesian. Neuro: Pt awakens to voice. Pupils 3mm bilaterally reactive bilaterally. Follows commands in Indonesian. Pt more awake today. Not verbalizing. (Arnulfo Flynn) Lab, Micro, Other Results Last Impressions Chest X-Ray 02/09/18 0000 Signed Impressions: Service Date/Time: Friday, February 09, 2018 03:15 - CONCLUSION: Hyperinflation with no acute cardiopulmonary process. Joe Esteves MD Head CT 02/07/18 0600 Signed Impressions: Service Date/Time: Wednesday, February 07, 2018 08:13 - CONCLUSION: 1. Stable noncontrast head CT with persistent high density along a right parietal sulcus suspicious for subarachnoid hemorrhage. No new blood products are present. 2. Stable severe generalized atrophy. Kevin Encarnacion MD Laboratory Tests Test 02/09/18 05:00 Blood Gas Puncture Site LT RADIAL Blood Gas Patient Temperature 98.6 Blood Gas HCO3 26 mmol/L Blood Gas Base Excess 2.1 mmol/L Blood Gas Oxygen Saturation 95 % Arterial Blood pH 7.46 Arterial Blood Partial Pressure CO2 37 mmHg Arterial Blood Partial Pressure O2 86 mmHg Arterial Blood Oxygen Content 16.9 Vol % Arterial Blood Carboxyhemoglobin 1.6 % Arterial Blood Methemoglobin 1.1 % Blood Gas Hemoglobin 12.7 G/DL Oxygen Delivery Device NASAL CANNULA Blood Gas Liter Flow 4 L/M (Arnulfo Flynn) Medical Decision Making Impression and Plan A: 82 y/o FM with small amount of subarachnoid hemorrhage posteriorly in the parietal lobe. No mass effect is appreciated. OVERALL IMPRESSION: Traumatic subarachnoid hemorrhage, small. PLAN: Continue to monitor Neuro exam Continue with current care DVT prophylaxis with SCDs. (Arnulfo Flynn) Attending Statement The exam, history, and the medical decision-making described in the above note were completed with the assistance of the mid-level provider. I reviewed and agree with the findings presented. I attest that I had a [id number] encounter with the patient on the same day, and personally performed and documented my assessment and findings in the medical record. (Robin Patel MD) Arnulfo Flynn February 09, 2018 10:04 Robin Patel MD February 09, 2018 13:17
[2018-02-09] MEDS: DOCUSATE SODIUM 50 MG/SENNA 8.6 MG TAB PO SCH ×2 (10:08→22:29)
[2018-02-09] MEDS: QUEtiapine FUMARATE 25 MG TAB PO SCH (10:08)
[2018-02-09] MEDS: DRONABINOL 2.5 MG CAP PO SCH ×2 (12:33→16:26)
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
[2018-02-09] MEDS ORDERED: PILL SPLITTER OTHER PRN (16:00)
[2018-02-09] MEDS ORDERED: QUEtiapine FUMARATE 25 MG TAB PO SCH (21:00)
[2018-02-09] MEDS: cefTRIAXone INJ 1,000 MG in SODIUM CHLORIDE 0.9% INJ 100 ML IV SCH (22:28)
[2018-02-10] VITALS (9 sets, daily range): BP systolic 130–163; BP diastolic 62–84; PULSE 75–98; RESP 18–22; TEMP 97.2–98.2; O2SAT 92–99
[2018-02-10] MEDS: RESP: ALBUTEROL 2.5 MG/IPRATROPIUM 0.5 MG NEB (SCH) NEB ×4 (04:00→20:41)
[2018-02-10] MEDS: SODIUM CHLORIDE 0.9% FLUSH 10 ML FLUSH IV FLUSH SCH ×2 (07:42→20:21)
[2018-02-10] MEDS: DOCUSATE SODIUM 50 MG/SENNA 8.6 MG TAB PO SCH ×2 (07:42→20:22)
[2018-02-10] MEDS: LORazepam 2 MG/ML VIAL IV PUSH PRN (07:43)
[2018-02-10] MEDS: DRONABINOL 2.5 MG CAP PO SCH (10:10)
[2018-02-10] MEDS: DEXTROSE 5% IN WATE 1000ML INJ 1,000 ML IV SCH (11:22)
--- NOTE | 2018-02-10 12:32 | RADRPT ---
EXAM DATE/TIME: 02/10/2018 11:58 [facility] COMPARISON: No previous studies available for comparison. INDICATIONS : Contusion. MEDICAL HISTORY : None. SURGICAL HISTORY : None. ENCOUNTER: Subsequent ACUITY: 2 days PAIN SCORE: Non-responsive. LOCATION: Left Hand FINDINGS: Three view examination of the left hand demonstrates a mildly comminuted nondisplaced fracture involv ing the distal fourth middle phalanx with ill-defined fracture lines extend into the distal interphal angeal joint. There is mild overlying soft tissue swelling. The carpal bones appear intact. The inte rphalangeal and metacarpophalangeal joints are intact with mild degenerative changes with sclerosis. Bony mineralization is normal. There is overlying artifact from IV tubing. CONCLUSION: Nondisplaced fracture of the fourth middle phalanx. Ho Whalen MD on February 10, 2018 at 12:26 Board Certified Radiologist. This report was verified electronically.
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
[2018-02-10] MEDS: cefTRIAXone INJ 1,000 MG in SODIUM CHLORIDE 0.9% INJ 100 ML IV SCH (20:21)
[2018-02-11] MEDS: RESP: ALBUTEROL 2.5 MG/IPRATROPIUM 0.5 MG NEB (SCH) NEB ×4 (03:43→21:33)
[2018-02-11 04:00] VITALS: BP 135/66; PULSE 97; RESP 18; TEMP 97.9; O2SAT 97
[2018-02-11] MEDS: SODIUM CHLORIDE 0.9% FLUSH 10 ML FLUSH IV FLUSH SCH ×2 (07:27→20:50)
[2018-02-11] MEDS: DOCUSATE SODIUM 50 MG/SENNA 8.6 MG TAB PO SCH ×2 (07:27→21:00)
[2018-02-11] MEDS: DEXTROSE 5% IN WATE 1000ML INJ 1,000 ML IV SCH (07:27)
[2018-02-11 08:00] VITALS: BP 110/79; PULSE 97; RESP 18; TEMP 98; O2SAT 98
[2018-02-11 09:00] VITALS: O2SAT 97
[2018-02-11 12:00] VITALS: BP 157/73; PULSE 106; RESP 18; TEMP 98.5; O2SAT 98
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
[2018-02-11] MEDS: traZODone HCL 50 MG TAB PO SCH ×2 (14:52→21:00)
[2018-02-11 16:00] VITALS: BP 166/97; PULSE 110; RESP 18; TEMP 98.6; O2SAT 96
[2018-02-11 20:00] VITALS: BP 168/79; PULSE 110; RESP 20; TEMP 98.9; O2SAT 92
[2018-02-11] MEDS: cefTRIAXone INJ 1,000 MG in SODIUM CHLORIDE 0.9% INJ 100 ML IV SCH (20:46)
[2018-02-12] VITALS (8 sets, daily range): BP systolic 130–161; BP diastolic 60–88; PULSE 54–113; RESP 18–20; TEMP 98–98.9; O2SAT 95–98
[2018-02-12] MEDS: RESP: ALBUTEROL 2.5 MG/IPRATROPIUM 0.5 MG NEB (SCH) NEB ×4 (02:52→21:19)
[2018-02-12] MEDS: traZODone HCL 50 MG TAB PO SCH (08:05)
[2018-02-12] MEDS: DOCUSATE SODIUM 50 MG/SENNA 8.6 MG TAB PO SCH ×2 (08:05→23:14)
[2018-02-12] MEDS: SODIUM CHLORIDE 0.9% FLUSH 10 ML FLUSH IV FLUSH SCH ×2 (08:06→21:00)
[2018-02-12] MEDS: DEXTROSE 5% IN WATE 1000ML INJ 1,000 ML IV SCH ×2 (14:05→23:12)
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
[2018-02-12] MEDS ORDERED: traZODone HCL 50 MG TAB PO ONE (22:00)
[2018-02-12] MEDS: cefTRIAXone INJ 1,000 MG in SODIUM CHLORIDE 0.9% INJ 100 ML IV SCH (23:13)
[2018-02-13 00:15] VITALS: BP 127/65; PULSE 80; RESP 18; TEMP 97.9; O2SAT 97
[2018-02-13 02:45] VITALS: BP 120/80; PULSE 78; RESP 17; TEMP 98; O2SAT 98
[2018-02-13] MEDS: RESP: ALBUTEROL 2.5 MG/IPRATROPIUM 0.5 MG NEB (SCH) NEB (03:43)
[2018-02-13] MEDS: DEXTROSE 5% IN WATE 1000ML INJ 1,000 ML IV SCH (06:45)
[2018-02-13 08:00] VITALS: BP 152/74; PULSE 93; RESP 18; TEMP 98.8; O2SAT 93
[2018-02-13] MEDS: SODIUM CHLORIDE 0.9% FLUSH 10 ML FLUSH IV FLUSH SCH ×2 (09:00→21:00)
[2018-02-13] MEDS: DOCUSATE SODIUM 50 MG/SENNA 8.6 MG TAB PO SCH ×2 (09:36→21:00)
[2018-02-13] MEDS: DRONABINOL 2.5 MG CAP PO SCH ×2 (09:38→16:46)
[2018-02-13 12:00] VITALS: BP 138/65; PULSE 75; RESP 18; TEMP 98.5; O2SAT 96
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
[2018-02-13 16:00] VITALS: BP 143/71; PULSE 86; RESP 18; TEMP 98.9; O2SAT 92
[2018-02-13 21:50] VITALS: BP 129/88; PULSE 88; RESP 19; TEMP 98; O2SAT 98
[2018-02-13] MEDS: cefTRIAXone INJ 1,000 MG in SODIUM CHLORIDE 0.9% INJ 100 ML IV SCH (22:22)
[2018-02-14] VITALS: BP 118/88; PULSE 88; RESP 20; TEMP 98; O2SAT 96
[2018-02-14 03:50] VITALS: BP 130/64; PULSE 66; RESP 16; TEMP 97.2; O2SAT 99
[2018-02-14 08:00] VITALS: BP 128/83; PULSE 92; RESP 16; TEMP 98.1; O2SAT 98
[2018-02-14] MEDS: SODIUM CHLORIDE 0.9% FLUSH 10 ML FLUSH IV FLUSH SCH ×2 (08:41→21:00)
[2018-02-14] MEDS: DOCUSATE SODIUM 50 MG/SENNA 8.6 MG TAB PO SCH ×2 (08:41→21:00)
[2018-02-14] MEDS: LORazepam 2 MG/ML VIAL IV PUSH PRN (08:47)
[2018-02-14] MEDS: DRONABINOL 2.5 MG CAP PO SCH ×2 (10:50→17:06)
[2018-02-14 12:00] VITALS: BP 134/84; PULSE 90; RESP 19; TEMP 98.7; O2SAT 99
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
[2018-02-14 16:00] VITALS: BP 127/77; PULSE 75; RESP 16; TEMP 98.5; O2SAT 98
--- NOTE | 2018-02-14 16:48 | RADRPT ---
EXAM DATE/TIME: 02/14/2018 15:46 [facility] COMPARISON: CT BRAIN W/O CONTRAST, February 06, 2018, 16:43. CT BRAIN W/O CONTRAST, February 07, 2018, 8:13. INDICATIONS : F/U subarachnoid hemorrhage. RADIATION DOSE: 45.19 CTDIvol (mGy) MEDICAL HISTORY : Alzheimer's SURGICAL HISTORY : None. ENCOUNTER: Subsequent ACUITY: 1 week PAIN SCALE: 0/10 LOCATION: cranial TECHNIQUE: Multiple contiguous axial images were obtained of the head. Using automated exposure control and adj ustment of the mA and/or kV according to patient size, radiation dose was kept as low as reasonably a chievable to obtain optimal diagnostic quality images. DICOM format image data is available electro nically for review and comparison. FINDINGS: CEREBRUM: The ventricles and cortical sulci are widened. There is expansion of the extra-axial spaces over the frontal lobes. The previously seen subarachnoid hemorrhage in the right parietal region has resolved/ evolve. No acute hemorrhage is seen. No evidence of midline shift, mass lesion, hemorrhage or acute infarction. No extra-axial fluid collections are seen. POSTERIOR FOSSA: The cerebellum and brainstem are intact. The 4th ventricle is midline. The cerebellopontine angle i s unremarkable. EXTRACRANIAL: The visualized portion of the orbits is intact. SKULL: The calvaria is intact. No evidence of skull fracture. CONCLUSION: 1. No acute abnormality or hemorrhage is seen. 2. Atrophy. Kevin Maurer MD on February 14, 2018 at 16:43 Board Certified Radiologist. This report was verified electronically.
[2018-02-14] MEDS: DEXTROSE 5% IN WATE 1000ML INJ 1,000 ML IV SCH ×3 (17:06→23:02)
[2018-02-14 20:30] VITALS: BP 134/63; PULSE 102; RESP 18; TEMP 98; O2SAT 97
[2018-02-14] MEDS: cefTRIAXone INJ 1,000 MG in SODIUM CHLORIDE 0.9% INJ 100 ML IV SCH ×2 (22:56→23:05)
[2018-02-15 00:44] VITALS: BP 157/89; PULSE 89; RESP 18; TEMP 97.6; O2SAT 94
[2018-02-15 04:53] VITALS: BP 137/61; PULSE 88; RESP 18; TEMP 97.7; O2SAT 95
[2018-02-15 07:40] VITALS: BP 133/72; PULSE 92; RESP 18; TEMP 97.8; O2SAT 99
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
[2018-02-15] MEDS: SODIUM CHLORIDE 0.9% FLUSH 10 ML FLUSH IV FLUSH SCH ×2 (09:00→20:18)
[2018-02-15 09:09] LABS: AUTOMATED NEUTROPHIL # 7.7 TH/MM3 (1.8-7.7); BASOPHIL % 0.4 % (0.0-2.0); EOSINOPHIL # 0.1 TH/MM3 (0-0.4); HEMATOCRIT 37.8 % (35.0-46.0); HEMOGLOBIN 13.3 GM/DL (11.6-15.3); LYMPH % 10.9 % (9.0-44.0); LYMPHOCYTE # 1.1 TH/MM3 (1.0-4.8); MEAN CELL VOLUME 91.6 FL (80.0-100.0); MEAN CORPUSCULAR HEMOGLOBIN 32.3 PG (27.0-34.0); MEAN CORPUSCULAR HGB CONC 35.3 % (32.0-36.0); MONO % 9.5 % (0.0-8.0); MONOCYTE # 0.9 TH/MM3 (0-0.9); NEUT % 78.2 % (16.0-70.0); PLATELET COUNT 236 TH/MM3 (150-450); RED BLOOD COUNT 4.12 MIL/MM3 (4.00-5.30); RED CELL DISTRIBUTION WIDTH 12.2 % (11.6-17.2); WHITE BLOOD COUNT 9.8 TH/MM3 (4.0-11.0)
[2018-02-15 09:41] LABS: CALCIUM 9.2 MG/DL (8.5-10.1); CREATININE 0.35 MG/DL (0.50-1.00)
[2018-02-15] MEDS: DOCUSATE SODIUM 50 MG/SENNA 8.6 MG TAB PO SCH ×2 (09:56→20:18)
[2018-02-15] MEDS ORDERED: POTASSIUM CHLORIDE 10 MEQ CONTROLLED RELEASE TAB PO ONE (10:00)
[2018-02-15 11:50] VITALS: BP 160/79; PULSE 98; RESP 18; TEMP 97.5; O2SAT 96
[2018-02-15] MEDS ORDERED: POTASSIUM CHLORIDE 25 MEQ EFFERVESCENT TAB PO ONE ×2 (12:00→16:00)
[2018-02-15] MEDS: SODIUM CHLOR 0.9% 1000 ML INJ 1,000 ML IV SCH ×2 (12:13→23:20)
[2018-02-15] MEDS: DRONABINOL 2.5 MG CAP PO SCH ×2 (12:13→18:03)
[2018-02-15] MEDS ORDERED: POTASSIUM CHLORIDE 20 MEQ CONTROLLED RELEASE TAB PO ONE (14:00)
[2018-02-15 16:08] VITALS: BP 150/72; PULSE 96; RESP 18; TEMP 97.3; O2SAT 99
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
[2018-02-15] MEDS: LACTULOSE SYRUP 20 GM/30 ML CUP PO PRN (20:18)
[2018-02-15 20:19] VITALS: BP 150/64; PULSE 121; RESP 20; TEMP 97.3; O2SAT 95
[2018-02-16 00:28] VITALS: BP 141/75; PULSE 103; RESP 20; TEMP 98; O2SAT 97
[2018-02-16] MEDS: DEXTROSE 5% IN WATE 1000ML INJ 1,000 ML IV SCH (01:25)
[2018-02-16 05:24] VITALS: BP 131/72; PULSE 89; RESP 20; TEMP 97.8; O2SAT 99
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
[2018-02-16 07:43] VITALS: BP 132/68; PULSE 76; RESP 18; TEMP 97.9; O2SAT 96
[2018-02-16] MEDS: SODIUM CHLORIDE 0.9% FLUSH 10 ML FLUSH IV FLUSH SCH ×2 (09:00→21:00)
[2018-02-16] MEDS: DOCUSATE SODIUM 50 MG/SENNA 8.6 MG TAB PO SCH ×2 (09:23→21:00)
[2018-02-16] MEDS: LACTULOSE SYRUP 20 GM/30 ML CUP PO PRN (09:26)
[2018-02-16 09:52] LABS: BICARBONATE 22.8 MEQ/L (21.0-32.0); CALCIUM 9.1 MG/DL (8.5-10.1); CREATININE 0.41 MG/DL (0.50-1.00)
[2018-02-16 12:12] VITALS: BP 140/76; PULSE 93; RESP 18; TEMP 97.9; O2SAT 98
--- NOTE | 2018-02-16 14:12 | HHI.HCPN ---
Reason for visit a. To assist with evaluation and management of symptoms including: Debility , decreased oral intake. b. To assist medical decision maker(s) with: better understanding of current medical conditions; weighing benefits/burdens of medical treatment options; making medical treatment decisions. . Subjective/Interval History Plan of care follow-up for further clarifications of goals of care. Patient seen in her room. Alert to self, disoriented as to place and situation. Patient is Uzbek speaker, visit conducted in Uzbek. Patient with repetitive speech, she was unable to tell me her name. Mostly nonsensical speech. Not following commands. Patient remains afebrile, stable hemodynamically. Tolerating room air with oxygen saturation in the mid to high 90s. Laboratory workup today revealing WBC 9.8, Hgb 13.3, sodium 131, potassium 3.6, BUN/creatinine 8/0.41. No new imaging for review. Patient with minimal oral intake. Nutrition assessment completed on 02/15/18. Patient's BMI 13.8, remains on Marinol twice daily. Artificial feeding recommended. . Family/friend interactions Bedside conversation with granddaughter Lucía Brewer. She confirmed patient is . She has 2 biological children, son Julius Brewer sustained a traumatic brain injury in June 2017, currently having memory issues and unable to participating medical decision making. Son Devonte Brewer resides in [place]. Obtain his contact information. Telephone conversation with patient' s son Devonte. Medical update provided. Reviewed patient's past medical history, psychosocial history. Reviewed events leading to this hospitalization , clinical course and current medical management. Reviewed diagnosis of severe dementia, reviewed likely trajectory of illness given patient's current condition. Reviewed difficult disposition secondary to behavioral disturbances and patient requiring four-point restraint. Reviewed risks, benefits and limitations of CPR, intubation and mechanical ventilation given patient's advanced dementia. Hospice philosophy and benefits introduced. Son wishing to discuss goals of care with additional family members. Goals of therapy remain aggressive at this time. . Advance Directives Living Will: Never completed Health Care Surrogate: Never completed Durable Power of Local Company Hazmat Driver: Never completed Advance Directive Specifics Health Care Surrogate(s): In the absence of advance directives, healthcare proxy decision making would fall to the majority of patient's children, reports of patient having 2 sons. One son Julius with TBI, incapacitated for medical decision-making. Therefore, healthcare proxy decision making falls to patient's son . Significant change in goals: Goals of therapy remain aggressive. Objective Vital Signs Date Time Temp Pulse Resp B/P (MAP) Pulse Ox O2 Delivery O2 Flow Rate FiO2 02/16/18 12:12 97.9 93 18 140/76 (97) 98 02/16/18 07:43 97.9 76 18 132/68 (89) 96 02/16/18 05:24 97.8 89 20 131/72 (91) 99 02/16/18 00:28 98.0 103 20 141/75 (97) 97 02/15/18 20:19 97.3 121 20 150/64 (92) 95 02/15/18 16:08 97.3 96 18 150/72 (98) 99 Intake & Output 02/16/18 02/16/18 07:00 19:00 # Voids 3 Physical Exam CONSTITUTIONAL/GENERAL: This is a thin, frail-looking female in no apparent distress. TUBES/LINES/DRAINS: PIV SKIN: No jaundice, rashes, or lesions. Ecchymoses on upper extremities. No wounds seen anteriorly. Skin temperature appropriate. Not diaphoretic. HEAD: Atraumatic. Normocephalic. EYES: Pupils equal and round and reactive. Extraocular motions intact. No scleral icterus. No injection or drainage ENT: Hearing grossly normal. Nose without bleeding or purulent drainage. Moist oral mucosa. NECK: Trachea midline. Supple, nontender. CARDIOVASCULAR: Regular rate and rhythm without murmurs, gallops, or rubs. No JVD. Peripheral pulses symmetric. RESPIRATORY/CHEST: Symmetric, unlabored respirations. Clear to auscultation. Breath sounds equal bilaterally. GASTROINTESTINAL: Abdomen soft, non-tender, nondistended. No guarding. Bowel sounds present. GENITOURINARY: Without palpable bladder distension. Mishra catheter in place. MUSCULOSKELETAL: Extremities without clubbing, cyanosis, or edema. No mottling or clubbing. Muscle atrophy to all 4 extremities. NEUROLOGICAL: Awake and alert to self. Confused as to place and situation. Verbal, mostly nonsensical speech in Uzbek. PSYCHIATRIC: Anxiety, agitation. . Diagnostic Tests Laboratory Laboratory Tests Test 02/15/18 07:09 02/15/18 14:40 02/15/18 20:50 02/16/18 08:35 White Blood Count 9.8 TH/MM3 (4.0-11.0) Red Blood Count 4.12 MIL/MM3 (4.00-5.30) Hemoglobin 13.3 GM/DL (11.6-15.3) Hematocrit 37.8 % (35.0-46.0) Mean Corpuscular Volume 91.6 FL (80.0-100.0) Mean Corpuscular Hemoglobin 32.3 PG (27.0-34.0) Mean Corpuscular Hemoglobin Concent 35.3 % (32.0-36.0) Red Cell Distribution Width 12.2 % (11.6-17.2) Platelet Count 236 TH/MM3 (150-450) Mean Platelet Volume 9.0 FL (7.0-11.0) Neutrophils (%) (Auto) 78.2 % (16.0-70.0) Lymphocytes (%) (Auto) 10.9 % (9.0-44.0) Monocytes (%) (Auto) 9.5 % (0.0-8.0) Eosinophils (%) (Auto) 1.0 % (0.0-4.0) Basophils (%) (Auto) 0.4 % (0.0-2.0) Neutrophils # (Auto) 7.7 TH/MM3 (1.8-7.7) Lymphocytes # (Auto) 1.1 TH/MM3 (1.0-4.8) Monocytes # (Auto) 0.9 TH/MM3 (0-0.9) Eosinophils # (Auto) 0.1 TH/MM3 (0-0.4) Basophils # (Auto) 0.0 TH/MM3 (0-0.2) CBC Comment DIFF FINAL Differential Comment Blood Urea Nitrogen 5 MG/DL (7-18) 8 MG/DL (7-18) Creatinine 0.35 MG/DL (0.50-1.00) 0.41 MG/DL (0.50-1.00) Random Glucose 125 MG/DL (74-106) 88 MG/DL (74-106) Calcium Level 9.2 MG/DL (8.5-10.1) 9.1 MG/DL (8.5-10.1) Sodium Level 123 MEQ/L (136-145) 123 MEQ/L (136-145) 128 MEQ/L (136-145) 131 MEQ/L (136-145) Potassium Level 3.1 MEQ/L (3.5-5.1) 3.6 MEQ/L (3.5-5.1) Chloride Level 82 MEQ/L (98-107) 96 MEQ/L (98-107) Carbon Dioxide Level 29.0 MEQ/L (21.0-32.0) 22.8 MEQ/L (21.0-32.0) Anion Gap 12 MEQ/L (5-15) 12 MEQ/L (5-15) Estimat Glomerular Filtration Rate 179 ML/MIN (>89) 149 ML/MIN (>89) Result Diagram: 02/15/18 0709 02/16/18 0884 Assessment and Plan Disease Oriented Problem List: (1) Failure to thrive in adult (2) SAH (subarachnoid hemorrhage) (3) Dementia with aggressive behavior (4) Decreased oral intake (5) Urinary tract infection (6) Physical deconditioning Symptom Scale: (1) Debility 0-10 Scale: Unable to quantify (2) Decreased oral intake 0-10 Scale: Unable to quantify Pertinent Non-Medical Issues Psychosocial: Patient originally from [facility]. She is single, several years ago. It is reported that she has 2 sons, one residing locally and one in [place]. Patient has 3 granddaughters who reside locally. Spiritual: Jainism. Legal: No advance directives completed. Ethical issues impacting care: No ethical issues identified. . Important Contacts Son/HCP Devonte Brewer . Granddaughter Lucía Gormanlien Granddaughter Jessica Liyalonlien Granddaughter Adria Liyalyndon . Prognosis Mrs. Cobb is an 82-year-old female with a medical history significant for dementia with behavioral disturbances, hard of hearing and anxiety. Patient presented to emergency room on 02/06/18 for evaluation secondary to mechanical fall resulting in head injury. Head CT revealing small linear area of suspected subarachnoid hemorrhage in the right inferior parietal lobe, atrophy and nasal bone fractures -age unknown. Neurosurgery consulted, recommending medical management/monitoring. Patient with severe dementia and failure to thrive. Patient's BMI is 13.8, minimal oral intake for the past few weeks. Patient at high risk for further complications, continued decline and . . Code Status: Full Code Plan * CODE STATUS: Full code. * HEALTHCARE DECISION-MAKING: Patient unable to participating medical decision making secondary to severe dementia. Family reports that no advance directives have been completed. In the absence of advance directives, healthcare proxy decision making would fall to the majority of patient's children, for which patient has 2 sons. Son Julius with TBI, incapacitated for medical decision- making. Therefore, healthcare proxy decision making falls to patient's son Devotne Brewer. Devonte has accepted this role and is fully supported by additional family members. . * GOALS OF CARE: Goals of therapy remain aggressive at this time. Palliative care spoke with healthcare proxy son Devonte. Reviewed at length patient's current clinical condition and prognosis in the setting of severe dementia and failure to thrive. Discussed risks, benefits and limitations of artificial nutrition via NG tube versus PEG tube. Hospice philosophy and services introduced. Devonte wishing to speak with additional family members for further goals of care discussion. Family looking into long-term placement. Difficult disposition secondary to patient's aggressive behavior. * SYMPTOMS: = Agitation: Dementia with behavioral disturbances. Psych following. Seroquel and trazodone discontinued secondary to sedation. Lorazepam 1 mg available as needed. = Decreased appetite/oral intake: Patient currently on Marinol 2.5mg BID. Eating approximately 50% of her meals. Concerns regarding patient's ability to meet her nutritional needs, nutrition assessment completed -recommending artificial nutrition. Patient with BMI of 13.8 with progressive weight loss. Family to make a decision regarding artificial nutrition versus comfort directed care with hospice. * Palliative care contact information has been provided to family. * Palliative care will continue to follow up for further clarification of goals of care as patient's clinical course continues to evolve. . Time Spent Total Floor Time (mins): 41 (Total time to include reviewing summarization of available medical records, physical exam, goals of care conversation with granddaughter Lucía and son Devonte.) >50% Counseling/Coord of Care: Yes Attestation To help prompt me to consider important information that might be impacting today's encounter and assessment, information from prior notes written by myself or my colleagues may have been "brought forward" into today's note. My signature on this note, however, is an attestation that I personally performed the exam, history, and/or decision-making noted today, and, unless otherwise indicated, the interactions with patient, family, and staff as well as the review of records all occurred today. I also attest that the listed assessment and stated plan reflect my best clinical judgment today based on the combination of historical information, prior notes, and today's exam/ interactions. When time spent is documented, it refers only to time spent today by the signer, or if indicated, combined time spent today by collaborating physician/nurse practitioner. Gabrielle Toribio February 16, 2018 14:12
[2018-02-16] MEDS: DRONABINOL 2.5 MG CAP PO SCH ×2 (14:59→16:00)
[2018-02-16] MEDS: SODIUM CHLOR 0.9% 1000 ML INJ 1,000 ML IV SCH (15:07)
[2018-02-16 15:37] VITALS: BP 148/81; PULSE 100; RESP 18; TEMP 97.7; O2SAT 98
[2018-02-16 20:00] VITALS: BP 149/81; PULSE 99; RESP 22; TEMP 97.9; O2SAT 97
[2018-02-17] VITALS (7 sets, daily range): BP systolic 142–168; BP diastolic 73–88; PULSE 92–122; RESP 18–22; TEMP 97.2–98; O2SAT 96–100
[2018-02-17] MEDS: SODIUM CHLOR 0.9% 1000 ML INJ 1,000 ML IV SCH ×2 (02:00→14:47)
[2018-02-17] MEDS: BISACODYL 10 MG SUPP RECTAL PRN (05:23)
[2018-02-17] MEDS: SODIUM CHLORIDE 0.9% FLUSH 10 ML FLUSH IV FLUSH SCH ×2 (08:42→21:00)
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
[2018-02-17] MEDS: DOCUSATE SODIUM 50 MG/SENNA 8.6 MG TAB PO SCH ×2 (09:00→21:00)
[2018-02-17] MEDS: DRONABINOL 2.5 MG CAP PO SCH ×2 (11:00→16:00)
[2018-02-17 12:51] LABS: BICARBONATE 24.8 MEQ/L (21.0-32.0); CALCIUM 9.3 MG/DL (8.5-10.1); CREATININE 0.46 MG/DL (0.50-1.00)
--- NOTE | 2018-02-17 14:03 | HHI.HCPN ---
Reason for visit a. To assist with evaluation and management of symptoms including: Debility , decreased oral intake. b. To assist medical decision maker(s) with: better understanding of current medical conditions; weighing benefits/burdens of medical treatment options; making medical treatment decisions. . Subjective/Interval History Plan of care follow-up for further clarifications of goals of care. Patient seen in her room. She was resting in her bed in no acute distress, sleeping during my visit. Did not disturb given episodes of anxiety and agitation. She remains with bilateral soft wrist restraints. Febrile, slightly tachycardic with heart rate in the 110s-120s. Tolerated room air with oxygen saturation in the high 90s. No new laboratory or imaging available for review. . Family/friend interactions Telephone conversation with patient's son Devonte Brewer who resides in [place]. Medical update provided. Son reports that he spoke with attending, Dr. Reyes earlier this morning. Son verbalized having a lot of questions regarding patient's dementia with behavioral disturbances and failure to thrive/debility. Reviewed likely trajectory of illness to include progressive decline and loss of additional abilities given severe dementia. Reviewed dementia as a progressive and terminal illness with high risk for complications and . Reviewed risks, benefits and limitations of artificial nutrition via PEG tube versus NG tube. Discussed patient's quality of life versus prolongation of survival. Hospice philosophy and benefits reviewed at length. Son reports that he needs to speak with additional family members in order to make a decision regarding goals of care. Son to consider aggressive management with artificial nutrition versus transitioning patient to comfort-directed care with hospice. Goals of treatment remain aggressive at this time to include full code. . Advance Directives Living Will: Never completed Health Care Surrogate: Never completed Durable Power of Fly Tier: Never completed Advance Directive Specifics Health Care Surrogate(s): In the absence of advance directives, healthcare proxy decision making would fall to the majority of patient's children, reports of patient having 2 sons. One son Julius with TBI, incapacitated for medical decision-making. Therefore, healthcare proxy decision making falls to patient's son Devonte. . Significant change in goals: Goals of therapy remain aggressive at this time. . Objective Vital Signs Date Time Temp Pulse Resp B/P (MAP) Pulse Ox O2 Delivery O2 Flow Rate FiO2 02/17/18 12:05 97.9 112 18 149/77 (101) 100 5/10/18 08:00 98.0 122 22 142/77 (98) 96 02/17/18 07:09 97.8 101 22 144/77 (99) 98 02/17/18 06:54 97.8 02/17/18 00:00 97.3 92 19 157/88 (111) 99 02/16/18 20:00 97.9 99 22 149/81 (103) 97 02/16/18 15:37 97.7 100 18 148/81 (103) 98 Physical Exam CONSTITUTIONAL/GENERAL: This is a thin, frail-looking female in no apparent distress. TUBES/LINES/DRAINS: PIV, bilateral soft wrist restraints. SKIN: No jaundice, rashes, or lesions. Ecchymoses on upper extremities, left lower extremity. No wounds seen anteriorly. Skin temperature appropriate. Not diaphoretic. HEAD: Atraumatic. Normocephalic. EYES: Pupils equal and round and reactive. Extraocular motions intact. No scleral icterus. No injection or drainage ENT: Hearing grossly normal. Nose without bleeding or purulent drainage. Moist oral mucosa. NECK: Trachea midline. Supple, nontender. CARDIOVASCULAR: Regular rate and rhythm without murmurs, gallops, or rubs. No JVD. Peripheral pulses symmetric. RESPIRATORY/CHEST: Symmetric, unlabored respirations. Clear to auscultation. Breath sounds equal bilaterally. GASTROINTESTINAL: Abdomen soft, non-tender, nondistended. No guarding. Bowel sounds present. GENITOURINARY: Without palpable bladder distension. Mishra catheter in place. MUSCULOSKELETAL: Extremities without clubbing, cyanosis, or edema. No mottling or clubbing. Muscle atrophy to all 4 extremities. NEUROLOGICAL: Sleeping. PSYCHIATRIC: Periods of anxiety, agitation. . Diagnostic Tests Laboratory Laboratory Tests Test 02/15/18 07:09 02/15/18 14:40 02/15/18 20:50 02/16/18 08:35 White Blood Count 9.8 TH/MM3 (4.0-11.0) Red Blood Count 4.12 MIL/MM3 (4.00-5.30) Hemoglobin 13.3 GM/DL (11.6-15.3) Hematocrit 37.8 % (35.0-46.0) Mean Corpuscular Volume 91.6 FL (80.0-100.0) Mean Corpuscular Hemoglobin 32.3 PG (27.0-34.0) Mean Corpuscular Hemoglobin Concent 35.3 % (32.0-36.0) Red Cell Distribution Width 12.2 % (11.6-17.2) Platelet Count 236 TH/MM3 (150-450) Mean Platelet Volume 9.0 FL (7.0-11.0) Neutrophils (%) (Auto) 78.2 % (16.0-70.0) Lymphocytes (%) (Auto) 10.9 % (9.0-44.0) Monocytes (%) (Auto) 9.5 % (0.0-8.0) Eosinophils (%) (Auto) 1.0 % (0.0-4.0) Basophils (%) (Auto) 0.4 % (0.0-2.0) Neutrophils # (Auto) 7.7 TH/MM3 (1.8-7.7) Lymphocytes # (Auto) 1.1 TH/MM3 (1.0-4.8) Monocytes # (Auto) 0.9 TH/MM3 (0-0.9) Eosinophils # (Auto) 0.1 TH/MM3 (0-0.4) Basophils # (Auto) 0.0 TH/MM3 (0-0.2) CBC Comment DIFF FINAL Differential Comment Blood Urea Nitrogen 5 MG/DL (7-18) 8 MG/DL (7-18) Creatinine 0.35 MG/DL (0.50-1.00) 0.41 MG/DL (0.50-1.00) Random Glucose 125 MG/DL (74-106) 88 MG/DL (74-106) Calcium Level 9.2 MG/DL (8.5-10.1) 9.1 MG/DL (8.5-10.1) Sodium Level 123 MEQ/L (136-145) 123 MEQ/L (136-145) 128 MEQ/L (136-145) 131 MEQ/L (136-145) Potassium Level 3.1 MEQ/L (3.5-5.1) 3.6 MEQ/L (3.5-5.1) Chloride Level 82 MEQ/L (98-107) 96 MEQ/L (98-107) Carbon Dioxide Level 29.0 MEQ/L (21.0-32.0) 22.8 MEQ/L (21.0-32.0) Anion Gap 12 MEQ/L (5-15) 12 MEQ/L (5-15) Estimat Glomerular Filtration Rate 179 ML/MIN (>89) 149 ML/MIN (>89) Test 02/17/18 11:21 Blood Urea Nitrogen 9 MG/DL (7-18) Creatinine 0.46 MG/DL (0.50-1.00) Random Glucose 128 MG/DL (74-106) Calcium Level 9.3 MG/DL (8.5-10.1) Sodium Level 134 MEQ/L (136-145) Potassium Level 3.3 MEQ/L (3.5-5.1) Chloride Level 100 MEQ/L (98-107) Carbon Dioxide Level 24.8 MEQ/L (21.0-32.0) Anion Gap 9 MEQ/L (5-15) Estimat Glomerular Filtration Rate 130 ML/MIN (>89) Result Diagram: 02/15/18 0709 02/17/18 1121 Assessment and Plan Disease Oriented Problem List: (1) Failure to thrive in adult (2) SAH (subarachnoid hemorrhage) (3) Dementia with aggressive behavior (4) Decreased oral intake (5) Urinary tract infection (6) Physical deconditioning Symptom Scale: (1) Debility 0-10 Scale: Unable to quantify (2) Decreased oral intake 0-10 Scale: Unable to quantify Pertinent Non-Medical Issues Psychosocial: Patient originally from [facility]. She is single, several years ago. It is reported that she has 2 sons, one residing locally and one in [place]. Patient has 3 granddaughters who reside locally. Spiritual: Episcopalian. Legal: No advance directives completed. Ethical issues impacting care: No ethical issues identified. . Important Contacts Son/HCP Devonte Brewer . Granddaughter Lucía Liyalonlien Granddaughter Jessica Linda Granddaughter Adria Linda . Prognosis Mrs. Cobb is an 82-year-old female with a medical history significant for dementia with behavioral disturbances, hard of hearing and anxiety. Patient presented to emergency room on 02/06/18 for evaluation secondary to mechanical fall resulting in head injury. Head CT revealing small linear area of suspected subarachnoid hemorrhage in the right inferior parietal lobe, atrophy and nasal bone fractures -age unknown. Neurosurgery consulted, recommending medical management/monitoring. Patient with severe dementia and failure to thrive. Patient's BMI is 13.8, minimal oral intake for the past few weeks. Patient at high risk for further complications, continued decline and . . Code Status: Full Code Plan * CODE STATUS: Full code. Risks, benefits and limitations of CPR, intubation and mechanical ventilation discussed with patient's son at [facility] given patient 's severe dementia. * HEALTHCARE DECISION-MAKING: Patient unable to participating medical decision making secondary to severe dementia. Family reports that no advance directives have been completed. In the absence of advance directives, healthcare proxy decision making would fall to the majority of patient's children, for which patient has 2 sons. Son Julius with TBI, incapacitated for medical decision- making. Therefore, healthcare proxy decision making falls to patient's son Devonte Brewer. Devonte has accepted this role and is fully supported by additional family members. . * GOALS OF CARE: Goals of therapy remain aggressive at this time. Palliative care spoke with healthcare proxy son Devonte. Reviewed at length patient's current clinical condition and prognosis in the setting of severe dementia and failure to thrive. Discussed risks, benefits and limitations of artificial nutrition via NG tube vs PEG tube. Hospice philosophy and services reviewed at length. Hospice referral has been made; however, son verbalized needing additional time to discuss goals of care with additional family members. Family looking into long-term placement, difficult disposition secondary to patient's aggressive behavior. * SYMPTOMS: = Agitation: Dementia with behavioral disturbances. Psych following. Seroquel and trazodone discontinued secondary to sedation. Lorazepam 1 mg available as needed. = Decreased appetite/oral intake: Patient currently on Marinol 2.5mg BID. Eating approximately 50% of her meals. Concerns regarding patient's ability to meet her nutritional needs, nutrition assessment completed -recommending artificial nutrition. Patient with BMI of 13.8 with progressive weight loss. Family to make a decision regarding artificial nutrition versus comfort-directed care with hospice. * Case discussed with hospice supervisor painting shipyard. * Palliative care contact information has been provided to family. * Palliative care will continue to follow up for further clarification of goals of care as patient's clinical course continues to evolve. . Time Spent Total Floor Time (mins): 34 (Total time to include review medical records, physical exam, goals of care conversation with patient's son, case discussion with metal furniture glazier.) >50% Counseling/Coord of Care: Yes Attestation To help prompt me to consider important information that might be impacting today's encounter and assessment, information from prior notes written by myself or my colleagues may have been "brought forward" into today's note. My signature on this note, however, is an attestation that I personally performed the exam, history, and/or decision-making noted today, and, unless otherwise indicated, the interactions with patient, family, and staff as well as the review of records all occurred today. I also attest that the listed assessment and stated plan reflect my best clinical judgment today based on the combination of historical information, prior notes, and today's exam/ interactions. When time spent is documented, it refers only to time spent today by the signer, or if indicated, combined time spent today by collaborating physician/nurse practitioner. Gabrielle Toribio February 17, 2018 14:03
[2018-02-18] VITALS (8 sets, daily range): BP systolic 131–173; BP diastolic 63–79; PULSE 82–97; RESP 16–18; TEMP 97.8–98.9; O2SAT 95–97
[2018-02-18] MEDS: cloNIDine HCL 0.2 MG TAB PO PRN ×2 (02:56→17:50)
[2018-02-18] MEDS: SODIUM CHLOR 0.9% 1000 ML INJ 1,000 ML IV SCH ×3 (04:28→22:08)
[2018-02-18 07:55] LABS: BICARBONATE 25.7 MEQ/L (21.0-32.0); CALCIUM 8.8 MG/DL (8.5-10.1); CREATININE 0.29 MG/DL (0.50-1.00)
[2018-02-18] MEDS: SODIUM CHLORIDE 0.9% FLUSH 10 ML FLUSH IV FLUSH SCH ×2 (09:00→21:00)
[2018-02-18] MEDS: DOCUSATE SODIUM 50 MG/SENNA 8.6 MG TAB PO SCH ×2 (09:17→21:00)
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
[2018-02-18] MEDS: POTASSIUM CHLOR 20 MEQ PREMIX 100 ML IV SCH ×2 (10:32→13:14)
[2018-02-18] MEDS: DRONABINOL 2.5 MG CAP PO SCH ×2 (11:00→15:35)
--- NOTE | 2018-02-18 14:24 | HHI.HCPN ---
Reason for visit a. To assist with evaluation and management of symptoms including: Debility , decreased oral intake. b. To assist medical decision maker(s) with: better understanding of current medical conditions; weighing benefits/burdens of medical treatment options; making medical treatment decisions. . Subjective/Interval History Plan of care follow-up for further clarifications of goals of care. Patient seen in her room., Alert to self, disoriented as to place and situation. Patient is a Icelandic speaker, visit conducted in Icelandic. Patient was noted restless, attempting to get out of bed. Bilateral soft wrist restraints in place. Patient verbal, repetitive speech "let me go home". Denied pain or discomfort during my visit, persistent anxiety/restlessness. Currently tolerating room air with oxygen saturation in the high 90s, vital signs stable. Laboratory workup today revealing sodium 136, potassium 2.9, BUN/creatinine 5/ 0.29. No new imaging available for review. No family at bedside during my visit. . Family/friend interactions Telephone conversation with patient's son Devonte/HCP. Medical update provided. Son reports that additional family members who have visited patient reported that patient's appetite has improved. Son reports that after further discussion with additional family members, they are declining hospice services at this time. He also reports that given patient's "improved appetite and food intake" as reported by granddaughters, family wishing to continue current aggressive management to include full code while hoping for long-term facility placement once patient is medically cleared for discharge. Reviewed with son difficult disposition given patient's behavioral disturbances requiring restraints, son verbalized that family will continue looking into acceptance at long-term facility. Son declines artificial means of nutrition, NG or PEG tube at this time. . Advance Directives Living Will: Never completed Health Care Surrogate: Never completed Durable Power of Bacteriologist Pharmaceutical: Never completed Advance Directive Specifics Health Care Surrogate(s): In the absence of advance directives, healthcare proxy decision making would fall to the majority of patient's children, reports of patient having 2 sons. One son Julius with TBI, incapacitated for medical decision-making. Therefore, healthcare proxy decision making falls to patient's son Devonte. . Significant change in goals: Goals of therapy remain aggressive. . Objective Vital Signs Date Time Temp Pulse Resp B/P (MAP) Pulse Ox O2 Delivery O2 Flow Rate FiO2 02/18/18 12:00 98.9 95 18 156/76 (102) 96 02/18/18 08:00 86 16 136/70 (92) 97 02/18/18 04:32 97.8 82 18 137/63 (87) 97 02/18/18 02:47 152/68 (96) Automatic Cuff 02/18/18 00:50 98.1 91 18 165/79 (107) 96 02/18/18 00:00 98.1 91 18 165/79 (107) 96 02/17/18 20:00 97.7 93 18 168/78 (108) 97 02/17/18 16:14 97.2 98 18 159/73 (101) 97 Intake & Output 02/18/18 02/18/18 06:59 18:59 Intake Total 852 ml Balance 852 ml IV Total 852 ml # Voids 3 Physical Exam CONSTITUTIONAL/GENERAL: This is a thin, frail-looking female in moderate distress secondary to anxiety/agitation. Attempting to get out of bed, bilateral soft wrist restraints in place. TUBES/LINES/DRAINS: PIV, bilateral soft wrist restraints. SKIN: No jaundice, rashes, or lesions. Ecchymoses on upper extremities, left lower extremity. No wounds seen anteriorly. Skin temperature appropriate. Not diaphoretic. HEAD: Atraumatic. Normocephalic. EYES: Pupils equal and round and reactive. Extraocular motions intact. No scleral icterus. No injection or drainage ENT: Hearing grossly normal. Nose without bleeding or purulent drainage. Moist oral mucosa. NECK: Trachea midline. Supple, nontender. CARDIOVASCULAR: Regular rate and rhythm without murmurs, gallops, or rubs. No JVD. Peripheral pulses symmetric. RESPIRATORY/CHEST: Symmetric, unlabored respirations. Clear to auscultation. Breath sounds equal bilaterally. GASTROINTESTINAL: Abdomen soft, non-tender, nondistended. No guarding. Bowel sounds present. GENITOURINARY: Without palpable bladder distension. Mishra catheter in place. MUSCULOSKELETAL: Extremities without clubbing, cyanosis, or edema. No mottling or clubbing. Muscle atrophy to all 4 extremities. NEUROLOGICAL: Awake, alert to self. Disoriented as to place and situation. Verbal, repetitive speech. Mostly nonsensical. PSYCHIATRIC: Anxiety/agitation. . Diagnostic Tests Laboratory Laboratory Tests Test 5/8/18 14:40 02/15/18 20:50 02/16/18 08:35 02/17/18 11:21 Sodium Level 123 MEQ/L (136-145) 128 MEQ/L (136-145) 131 MEQ/L (136-145) 134 MEQ/L (136-145) Blood Urea Nitrogen 8 MG/DL (7-18) 9 MG/DL (7-18) Creatinine 0.41 MG/DL (0.50-1.00) 0.46 MG/DL (0.50-1.00) Random Glucose 88 MG/DL (74-106) 128 MG/DL (74-106) Calcium Level 9.1 MG/DL (8.5-10.1) 9.3 MG/DL (8.5-10.1) Potassium Level 3.6 MEQ/L (3.5-5.1) 3.3 MEQ/L (3.5-5.1) Chloride Level 96 MEQ/L (98-107) 100 MEQ/L (98-107) Carbon Dioxide Level 22.8 MEQ/L (21.0-32.0) 24.8 MEQ/L (21.0-32.0) Anion Gap 12 MEQ/L (5-15) 9 MEQ/L (5-15) Estimat Glomerular Filtration Rate 149 ML/MIN (>89) 130 ML/MIN (>89) Test 02/18/18 06:30 Blood Urea Nitrogen 5 MG/DL (7-18) Creatinine 0.29 MG/DL (0.50-1.00) Random Glucose 83 MG/DL (74-106) Calcium Level 8.8 MG/DL (8.5-10.1) Sodium Level 136 MEQ/L (136-145) Potassium Level 2.9 MEQ/L (3.5-5.1) Chloride Level 101 MEQ/L (98-107) Carbon Dioxide Level 25.7 MEQ/L (21.0-32.0) Anion Gap 9 MEQ/L (5-15) Estimat Glomerular Filtration Rate 222 ML/MIN (>89) Result Diagram: 02/15/18 0709 02/18/18 0630 Assessment and Plan Disease Oriented Problem List: (1) Failure to thrive in adult (2) SAH (subarachnoid hemorrhage) (3) Dementia with aggressive behavior (4) Decreased oral intake (5) Urinary tract infection (6) Physical deconditioning Symptom Scale: (1) Debility 0-10 Scale: Unable to quantify (2) Decreased oral intake 0-10 Scale: Unable to quantify Pertinent Non-Medical Issues Psychosocial: Patient originally from [facility]. She is single, several years ago. It is reported that she has 2 sons, one residing locally and one in [place]. Patient has 3 granddaughters who reside locally. Spiritual: Congregational. Legal: No advance directives completed. Ethical issues impacting care: No ethical issues identified. . Important Contacts Son/HCP Devonte Brewer . Granddaughter Lucía Mckeon Granddaughter Jessica Mckeon Granddaughter Adria Mckeon . Prognosis Mrs. Cobb is an 82-year-old female with a medical history significant for dementia with behavioral disturbances, hard of hearing and anxiety. Patient presented to emergency room on 02/06/18 for evaluation secondary to mechanical fall resulting in head injury. Head CT revealing small linear area of suspected subarachnoid hemorrhage in the right inferior parietal lobe, atrophy and nasal bone fractures -age unknown. Neurosurgery consulted, recommending medical management/monitoring. Patient with severe dementia and failure to thrive. Patient's BMI is 13.8, minimal oral intake for the past few weeks. Patient at high risk for further complications, continued decline and . . Code Status: Full Code Plan * CODE STATUS: Full code. Risks, benefits and limitations of CPR, intubation and mechanical ventilation discussed with patient's son at [facility] given patient 's severe dementia. * HEALTHCARE DECISION-MAKING: Patient unable to participating medical decision making secondary to severe dementia. Family reports that no advance directives have been completed. In the absence of advance directives, healthcare proxy decision making would fall to the majority of patient's children, for which patient has 2 sons. Son Julius with TBI, incapacitated for medical decision- making. Therefore, healthcare proxy decision making falls to patient's son Devonte Brewer. Devonte has accepted this role and is fully supported by additional family members. * GOALS OF CARE: 02/18/18 -As per patient's son Devonte acting as healthcare proxy decision maker, goals of therapy remain aggressive at this time to include FULL code. Son reports that after further discussion with additional family members, they are declining hospice services at this time. He also reports that given patient's "improved appetite and food intake" as reported by granddaughters, family wishing to continue current aggressive management to include full code while hoping for long-term facility placement once patient is medically cleared for discharge. Reviewed with son difficult disposition given patient's behavioral disturbances requiring restraints, son verbalized that family will continue looking into acceptance to long-term facility. Son declines artificial means of nutrition, NG or PEG tube at this time. * SYMPTOMS: = Agitation: Dementia with behavioral disturbances. Psych following. Seroquel and trazodone discontinued secondary to sedation. Lorazepam 1 mg available as needed. = Decreased appetite/oral intake: Patient currently on Marinol 2.5mg BID. Eating approximately 50% of her meals. Concerns regarding patient's ability to meet her nutritional needs, nutrition assessment completed -recommending artificial nutrition. Patient with BMI of 13.8 with progressive weight loss. Family declining artificial nutrition via NG or PEG tube. * Palliative care contact information has been provided to family. * Palliative care will continue to follow up for further clarification of goals of care as patient's clinical course continues to evolve. . Time Spent Total Floor Time (mins): 33 (Total time to include review medical records, physical exam, goals of care conversation with patient's son.) >50% Counseling/Coord of Care: Yes Attestation To help prompt me to consider important information that might be impacting today's encounter and assessment, information from prior notes written by myself or my colleagues may have been "brought forward" into today's note. My signature on this note, however, is an attestation that I personally performed the exam, history, and/or decision-making noted today, and, unless otherwise indicated, the interactions with patient, family, and staff as well as the review of records all occurred today. I also attest that the listed assessment and stated plan reflect my best clinical judgment today based on the combination of historical information, prior notes, and today's exam/ interactions. When time spent is documented, it refers only to time spent today by the signer, or if indicated, combined time spent today by collaborating physician/nurse practitioner. Gabrielle Toribio February 18, 2018 14:24
[2018-02-19] VITALS (7 sets, daily range): BP systolic 135–184; BP diastolic 65–92; PULSE 93–99; RESP 16–20; TEMP 97.5–98.2; O2SAT 97–99
[2018-02-19] MEDS: DOCUSATE SODIUM 50 MG/SENNA 8.6 MG TAB PO SCH ×2 (08:19→21:44)
[2018-02-19] MEDS: SODIUM CHLORIDE 0.9% FLUSH 10 ML FLUSH IV FLUSH SCH ×2 (08:19→21:45)
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
[2018-02-19] MEDS: DRONABINOL 2.5 MG CAP PO SCH ×2 (11:40→16:40)
[2018-02-20] VITALS (7 sets, daily range): BP systolic 121–156; BP diastolic 69–84; PULSE 87–102; RESP 16–20; TEMP 97.4–98.8; O2SAT 95–99
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
[2018-02-20] MEDS: DOCUSATE SODIUM 50 MG/SENNA 8.6 MG TAB PO SCH ×2 (09:00→21:00)
[2018-02-20] MEDS: SODIUM CHLORIDE 0.9% FLUSH 10 ML FLUSH IV FLUSH SCH ×2 (09:00→21:00)
[2018-02-20] MEDS ORDERED: SODIUM CHLOR 0.9% 1000 ML INJ 1,000 ML IV ONE (10:00)
[2018-02-20] MEDS: DRONABINOL 2.5 MG CAP PO SCH ×2 (11:00→18:42)
[2018-02-21 05:40] VITALS: BP 158/76; PULSE 93; RESP 18; TEMP 97.1; O2SAT 99
[2018-02-21 08:00] VITALS: BP 135/81; PULSE 97; RESP 20; TEMP 97.7; O2SAT 95
[2018-02-21] MEDS: DOCUSATE SODIUM 50 MG/SENNA 8.6 MG TAB PO SCH ×2 (09:00→22:17)
[2018-02-21] MEDS: SODIUM CHLORIDE 0.9% FLUSH 10 ML FLUSH IV FLUSH SCH ×2 (09:00→22:16)
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
[2018-02-21] MEDS: DRONABINOL 2.5 MG CAP PO SCH ×2 (10:46→18:15)
[2018-02-21 13:01] VITALS: BP 109/71; PULSE 108; RESP 18; TEMP 97.9; O2SAT 98
[2018-02-21 16:00] VITALS: BP 111/74; PULSE 88; RESP 20; TEMP 97.7; O2SAT 96
[2018-02-21 21:50] VITALS: BP 128/80; PULSE 86; RESP 20; TEMP 98.8; O2SAT 96
[2018-02-22] VITALS: BP 118/89; PULSE 69; RESP 22; TEMP 97.9; O2SAT 97
[2018-02-22 05:30] VITALS: BP 115/69; PULSE 66; RESP 20; TEMP 97.6; O2SAT 95
[2018-02-22 07:50] LABS: BICARBONATE 30.3 MEQ/L (21.0-32.0); CALCIUM 9.3 MG/DL (8.5-10.1); CREATININE 0.4 MG/DL (0.50-1.00)
[2018-02-22 08:00] VITALS: BP 115/64; PULSE 64; RESP 16; TEMP 97.7; O2SAT 96
[2018-02-22] MEDS: SODIUM CHLORIDE 0.9% FLUSH 10 ML FLUSH IV FLUSH SCH ×2 (10:00→21:40)
[2018-02-22] MEDS: DOCUSATE SODIUM 50 MG/SENNA 8.6 MG TAB PO SCH ×2 (10:00→21:40)
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
[2018-02-22] MEDS: DRONABINOL 2.5 MG CAP PO SCH ×2 (11:48→16:17)
[2018-02-22 13:02] VITALS: BP 105/68; PULSE 98; RESP 16; TEMP 98; O2SAT 96
[2018-02-22 16:00] VITALS: BP 108/71; PULSE 72; RESP 17; TEMP 98; O2SAT 96
[2018-02-22 20:00] VITALS: BP 163/79; PULSE 109; RESP 18; TEMP 97.4; O2SAT 94
[2018-02-23] VITALS: BP 153/80; PULSE 106; RESP 18; TEMP 98.2; O2SAT 97
[2018-02-23 04:00] VITALS: BP 141/89; PULSE 85; RESP 18; TEMP 97.9; O2SAT 97
[2018-02-23 08:09] VITALS: BP 141/77; PULSE 111; RESP 18; TEMP 98.1; O2SAT 96
[2018-02-23] MEDS: DOCUSATE SODIUM 50 MG/SENNA 8.6 MG TAB PO SCH ×2 (09:16→20:30)
[2018-02-23] MEDS: SODIUM CHLORIDE 0.9% FLUSH 10 ML FLUSH IV FLUSH SCH ×2 (09:16→20:31)
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
[2018-02-23 12:00] VITALS: BP 138/82; PULSE 118; RESP 18; TEMP 98; O2SAT 97
[2018-02-23] MEDS: ACETAMINOPHEN 325 MG TAB PO PRN (12:09)
[2018-02-23] MEDS: DRONABINOL 2.5 MG CAP PO SCH ×2 (12:10→16:37)
[2018-02-23 16:00] VITALS: BP 135/65; PULSE 104; RESP 18; TEMP 97.9; O2SAT 96
[2018-02-23 20:00] VITALS: BP 137/69; PULSE 101; RESP 18; TEMP 97.9; O2SAT 94
[2018-02-23] MEDS ORDERED: MIRTAZAPINE 15 MG TAB PO SCH (21:00)
[2018-02-24] VITALS: BP 156/79; PULSE 104; RESP 18; TEMP 98.1; O2SAT 96
[2018-02-24 04:00] VITALS: BP 132/71; PULSE 101; RESP 18; TEMP 97.8; O2SAT 96
[2018-02-24 08:13] VITALS: BP 149/77; PULSE 105; RESP 20; TEMP 98.2; O2SAT 95
[2018-02-24] MEDS: DOCUSATE SODIUM 50 MG/SENNA 8.6 MG TAB PO SCH ×2 (08:34→21:00)
[2018-02-24] MEDS: SODIUM CHLORIDE 0.9% FLUSH 10 ML FLUSH IV FLUSH SCH ×2 (08:34→21:04)
[2018-02-24 11:17] VITALS: BP 140/74; PULSE 99; RESP 20; TEMP 98.6; O2SAT 97
[2018-02-24] MEDS: DRONABINOL 2.5 MG CAP PO SCH ×2 (12:24→17:40)
--- NOTE | 2018-02-24 15:55 | HHI.HCPN ---
Reason for visit a. To assist with evaluation and management of symptoms including: Debility , decreased oral intake. b. To assist medical decision maker(s) with: better understanding of current medical conditions; weighing benefits/burdens of medical treatment options; making medical treatment decisions. . Subjective/Interval History Plan of care follow-up for further clarifications of goals of care. Patient seen in her room., Alert to self, disoriented as to place and situation. Patient is a Gabonese speaker, visit conducted in Gabonese. Patient was noted calm, pleasant. Intermittently following simple commands. She was observed with loose soft wrist restraints, she was sitting up in her bed eating lunch. No family at bedside. Remains afebrile, stable hemodynamically. Tolerating room air. Oxygen saturation in the mid to high 90s. Most recent laboratory workup 02/22 revealing sodium 136, potassium 4.0, BUN/creatinine 9/0.40. No new imaging for review. Calorie count completed on 02/23/18, patient able to meet calorie needs with p.o. intake plus supplements. No PEG tube recommended at this time. Discussed with watch caser Isidro Jane. . Family/friend interactions Telephone conversation with patient's son Devonte who is her healthcare proxy decision maker. Medical update provided. Reviewed results from recent calorie count. Son with additional questions regarding diagnosis of dementia and likely illness trajectory. Reviewed that patient remains at risk for further complications, likely continued decline and . As per son, goals of therapy remain aggressive to include full code. Family looking into long-term placement, granddaughters no longer able to care for patient at home. Reviewed with son difficult disposal, encouraged to collaborate with watch caser. . Advance Directives Living Will: Never completed Health Care Surrogate: Never completed Durable Power of Fixed Income Manager: Never completed Advance Directive Specifics Health Care Surrogate(s): In the absence of advance directives, healthcare proxy decision making would fall to the majority of patient's children, reports of patient having 2 sons. One son Julius with TBI, incapacitated for medical decision-making. Therefore, healthcare proxy decision making falls to patient's son Devonte. . Significant change in goals: Goals of therapy remain unchanged. . Objective Vital Signs Date Time Temp Pulse Resp B/P (MAP) Pulse Ox O2 Delivery O2 Flow Rate FiO2 02/24/18 11:17 98.6 99 20 140/74 (96) 97 02/24/18 08:13 98.2 105 20 149/77 (101) 95 02/24/18 04:00 97.8 101 18 132/71 (91) 96 02/24/18 00:00 98.1 104 18 156/79 (104) 96 02/23/18 20:00 97.9 101 18 137/69 (91) 94 02/23/18 16:00 97.9 104 18 135/65 (88) 96 Intake & Output 02/24/18 02/24/18 07:00 19:00 # Voids 6 1 Physical Exam CONSTITUTIONAL/GENERAL: This is a thin, frail-looking female in no acute distress. TUBES/LINES/DRAINS: PIV, bilateral soft wrist restraints, loose. SKIN: No jaundice, rashes, or lesions. Ecchymoses on upper extremities, left lower extremity. No wounds seen anteriorly. Skin temperature appropriate. Not diaphoretic. HEAD: Atraumatic. Normocephalic. EYES: Pupils equal and round and reactive. Extraocular motions intact. No scleral icterus. No injection or drainage ENT: Hearing grossly normal. Nose without bleeding or purulent drainage. Moist oral mucosa. NECK: Trachea midline. Supple, nontender. CARDIOVASCULAR: Regular rate and rhythm without murmurs, gallops, or rubs. No JVD. Peripheral pulses symmetric. RESPIRATORY/CHEST: Symmetric, unlabored respirations. Clear to auscultation. Breath sounds equal bilaterally. GASTROINTESTINAL: Abdomen soft, non-tender, nondistended. No guarding. Bowel sounds present. GENITOURINARY: Without palpable bladder distension. MUSCULOSKELETAL: Extremities without clubbing, cyanosis, or edema. No mottling or clubbing. Muscle atrophy to all 4 extremities, cachectic. NEUROLOGICAL: Awake, alert to self. Disoriented as to place and situation. Verbal, repetitive speech. Mostly nonsensical. PSYCHIATRIC: calm. . Diagnostic Tests Laboratory Laboratory Tests Test 02/22/18 06:10 Blood Urea Nitrogen 9 MG/DL (7-18) Creatinine 0.40 MG/DL (0.50-1.00) Random Glucose 123 MG/DL (74-106) Calcium Level 9.3 MG/DL (8.5-10.1) Sodium Level 136 MEQ/L (136-145) Potassium Level 4.0 MEQ/L (3.5-5.1) Chloride Level 98 MEQ/L (98-107) Carbon Dioxide Level 30.3 MEQ/L (21.0-32.0) Anion Gap 8 MEQ/L (5-15) Estimat Glomerular Filtration Rate 153 ML/MIN (>89) Result Diagram: 02/22/18 0610 Microbiology Microbiology Date/Time Source Procedure Growth Status 02/06/18 17:10 Urine Catheterized Urine Urine Culture - Final 10-50,000 CFU/ML MIXED GRAM POSITIVE ... Complete Assessment and Plan Disease Oriented Problem List: (1) Failure to thrive in adult (2) SAH (subarachnoid hemorrhage) (3) Dementia with aggressive behavior (4) Decreased oral intake (5) Urinary tract infection (6) Physical deconditioning Symptom Scale: (1) Debility 0-10 Scale: Unable to quantify (2) Decreased oral intake 0-10 Scale: Unable to quantify Pertinent Non-Medical Issues Psychosocial: Patient originally from [facility]. She is single, several years ago. It is reported that she has 2 sons, one residing locally and one in [place]. Patient has 3 granddaughters who reside locally. Spiritual: Pentecostalism. Legal: No advance directives completed. Ethical issues impacting care: No ethical issues identified. . Important Contacts Son/HCP Devonte Brewer . Granddaughter Lucía Mckeon Granddaughter Jessica Mckeon Granddaughter Adria Mckeon . Prognosis Mrs. Cobb is an 82-year-old female with a medical history significant for dementia with behavioral disturbances, hard of hearing and anxiety. Patient presented to emergency room on 02/06/18 for evaluation secondary to mechanical fall resulting in head injury. Head CT revealing small linear area of suspected subarachnoid hemorrhage in the right inferior parietal lobe, atrophy and nasal bone fractures -age unknown. Neurosurgery consulted, recommending medical management/monitoring. Patient with severe dementia and failure to thrive. Patient's BMI is 13.8, minimal oral intake for the past few weeks. Patient at high risk for further complications, continued decline and . . Code Status: Full Code Plan * CODE STATUS: Full code. Risks, benefits and limitations of CPR, intubation and mechanical ventilation discussed with patient's son at Devonte given patient 's severe dementia. * HEALTHCARE DECISION-MAKING: Patient unable to participating medical decision- making secondary to severe dementia, she will not regain decision-making capacity. Family reports that no advance directives have been completed. In the absence of advance directives, healthcare proxy decision making would fall to the majority of patient's children, for which patient has 2 sons. Son Julius with TBI, incapacitated for medical decision-making. Therefore, healthcare proxy decision making falls to patient's son Devonte Brewer. Devonte has accepted this role and is fully supported by additional family members. * GOALS OF CARE: 02/24/18 -As per patient's son Devonte acting as healthcare proxy decision maker, goals of therapy remain aggressive at this time to include FULL code. Hospice has been declined by family. Family looking into long-term placement, they were encouraged to collaborate with watch caser for placement options. Likely illness trajectory has been discussed at length with patient's son in the setting of severe dementia, patient remains at a very high risk for further complications, continued decline and . * SYMPTOMS: = Agitation: Dementia with behavioral disturbances. Psych following , seroquel and trazodone discontinued secondary to sedation. Lorazepam 1 mg available as needed. = Progressive weight loss: Patient with BMI of 13.8. Currently on Marinol 2.5mg BID and Remeron 7.5mg at HS. calorie count completed 02/23/18, patient meeting her nutritional needs with p.o. intake. * Case discussed with watch caser Isidro Jane. * Palliative care contact information has been provided to family. * Palliative care will continue to follow up as needed for further clarification of goals of care as patient's clinical course continues to evolve. . Time Spent Total Floor Time (mins): 32 (Total time to include review of medical records, physical exam, goals of care conversation with patient's son, Case discussion with watch caser.) >50% Counseling/Coord of Care: Yes Attestation To help prompt me to consider important information that might be impacting today's encounter and assessment, information from prior notes written by myself or my colleagues may have been "brought forward" into today's note. My signature on this note, however, is an attestation that I personally performed the exam, history, and/or decision-making noted today, and, unless otherwise indicated, the interactions with patient, family, and staff as well as the review of records all occurred today. I also attest that the listed assessment and stated plan reflect my best clinical judgment today based on the combination of historical information, prior notes, and today's exam/ interactions. When time spent is documented, it refers only to time spent today by the signer, or if indicated, combined time spent today by collaborating physician/nurse practitioner. Gabrielle Toribio February 24, 2018 15:55
[2018-02-24 15:57] VITALS: BP 130/82; PULSE 107; RESP 20; TEMP 98.4; O2SAT 97
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
[2018-02-24 20:00] VITALS: BP 123/67; PULSE 99; RESP 18; TEMP 98.1; O2SAT 95
[2018-02-24] MEDS: MEGESTROL ACETATE 40 MG TAB PO SCH (21:00)
[2018-02-24] MEDS: QUEtiapine FUMARATE 25 MG TAB PO SCH (21:02)
[2018-02-25] VITALS: BP 123/67; PULSE 99; RESP 18; TEMP 98.1; O2SAT 95
[2018-02-25 04:00] VITALS: BP 127/61; PULSE 106; RESP 18; TEMP 98; O2SAT 97
[2018-02-25 08:22] VITALS: BP 127/81; PULSE 93; RESP 20; TEMP 97.3; O2SAT 95
[2018-02-25] MEDS: SODIUM CHLORIDE 0.9% FLUSH 10 ML FLUSH IV FLUSH SCH ×2 (09:49→20:23)
[2018-02-25] MEDS: MEGESTROL ACETATE 40 MG TAB PO SCH ×2 (09:49→20:27)
[2018-02-25] MEDS: DOCUSATE SODIUM 50 MG/SENNA 8.6 MG TAB PO SCH ×2 (09:49→20:23)
[2018-02-25] MEDS: DRONABINOL 5 MG CAP PO SCH ×2 (10:09→17:14)
[2018-02-25] MEDS: DRONABINOL 2.5 MG CAP PO SCH (10:09)
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
[2018-02-25 11:54] VITALS: BP 148/74; PULSE 107; RESP 20; TEMP 97.8; O2SAT 98
[2018-02-25 16:00] VITALS: BP 130/71; PULSE 113; RESP 20; TEMP 98.6; O2SAT 99
[2018-02-25 20:00] VITALS: BP 127/67; PULSE 117; RESP 16; TEMP 98.4; O2SAT 95
[2018-02-25] MEDS: QUEtiapine FUMARATE 25 MG TAB PO SCH (20:22)
[2018-02-26] VITALS: BP 121/77; PULSE 105; RESP 16; TEMP 98.4; O2SAT 96
[2018-02-26 06:00] VITALS: BP 131/63; PULSE 100; RESP 16; TEMP 97.9; O2SAT 95
[2018-02-26 08:00] VITALS: BP 126/67; PULSE 99; RESP 16; TEMP 98.9; O2SAT 95
--- NOTE | 2018-02-26 09:20 | HHI.PR ---
Subjective Remarks Patient seen and examined this morning. Patient continues to be tachycardic. She is resting comfortably. Denies pain. Says hello and good bye. Does not answer any other questions. Objective Vital Signs Date Time Temp Pulse Resp B/P (MAP) Pulse Ox O2 Delivery O2 Flow Rate FiO2 02/26/18 06:00 97.9 100 16 131/63 (85) 95 02/26/18 00:00 98.4 105 16 121/77 (92) 96 02/25/18 20:00 98.4 117 16 127/67 (87) 95 02/25/18 16:00 98.6 113 20 130/71 (90) 99 02/25/18 11:54 97.8 107 20 148/74 (98) 98 I/O 02/25/18 02/25/18 02/25/18 02/26/18 02/26/18 02/26/18 07:00 15:00 23:00 07:00 15:00 23:00 Intake Total 360 ml 0 ml Balance 360 ml 0 ml Intake Oral 360 ml 0 ml # Voids 2 3 3 # Bowel Movements 0 Result Diagram: 02/22/18 0610 Imaging Last Impressions Head CT 02/14/18 0000 Signed Impressions: Service Date/Time: Wednesday, February 14, 2018 15:46 - CONCLUSION: 1. No acute abnormality or hemorrhage is seen. 2. Atrophy. Kevin Maurer MD Hand X-Ray 02/10/18 0000 Signed Impressions: Service Date/Time: February 11:58 - CONCLUSION: Nondisplaced fracture of the fourth middle phalanx. Ho Whalen MD Chest X-Ray 02/09/18 0000 Signed Impressions: Service Date/Time: Friday, February 09, 2018 03:15 - CONCLUSION: Hyperinflation with no acute cardiopulmonary process. Joe Esteves MD Objective Remarks GENERAL: Very thin appearing, no acute distress SKIN: Warm and dry. HEAD: Normocephalic. EYES: No scleral icterus. No injection or drainage. NECK: Supple, trachea midline. No JVD or lymphadenopathy. CARDIOVASCULAR: Regular rate and rhythm without murmurs, gallops, or rubs. RESPIRATORY: Breath sounds equal bilaterally. No accessory muscle use. GASTROINTESTINAL: Abdomen soft, non-tender, nondistended. MUSCULOSKELETAL: No cyanosis, or edema. A/P Problem List: (1) Dementia with aggressive behavior ICD Code: F03.91 - Unspecified dementia with behavioral disturbance Status: Chronic (2) SAH (subarachnoid hemorrhage) ICD Code: I60.9 - Nontraumatic subarachnoid hemorrhage, unspecified Status: Acute (3) Fall ICD Code: W19.XXXA - Unspecified fall, initial encounter Status: Acute (4) Failure to thrive in adult ICD Code: R62.7 - Adult failure to thrive (5) Physical deconditioning ICD Code: R53.81 - Other malaise (6) Urinary tract infection ICD Code: N39.0 - Urinary tract infection, site not specified Assessment and Plan In summary this is an 82-year-old female with a medical history significant for dementia and behavioral disturbances. She presented to [facility] after mechanical fall. She had a CT of the head done which showed a subarachnoid hemorrhage. Neurosurgery was consulted who recommended medical management. Patient with severe malnutrition with poor oral intake. The family has declined PEG tube. Fall with subarachnoid hemorrhage Previous CT shows stability Neurosurgery is following. Poor p.o. intake Patient patient and family declined PEG tube. Continue Marinol Continue supplementation with Ensure Fracture of left fourth middle phalanx Currently in splint UTI That is post treatment with Rocephin Dementia with aggressive behavior Patient currently unable to live at home due to the threats she is made to her family. She is intermittently required restraints while in the hospital Patient with significant sedation with trazodone and Remeron. She is currently on Seroquel 25 mg at bedtime Family declines hospice. Palliative care is following. Discharge Planning Case management to assist with placement, will need care home care. Problem Qualifiers (1) Fall: Qualified Codes: W19.XXXA - Unspecified fall, initial encounter Chantelle Madrid MD February 26, 2018 09:20
[2018-02-26] MEDS: DOCUSATE SODIUM 50 MG/SENNA 8.6 MG TAB PO SCH ×2 (09:22→20:46)
[2018-02-26] MEDS: SODIUM CHLORIDE 0.9% FLUSH 10 ML FLUSH IV FLUSH SCH ×2 (09:22→20:46)
[2018-02-26] MEDS: MEGESTROL ACETATE 40 MG TAB PO SCH ×2 (09:22→20:46)
[2018-02-26] MEDS: DRONABINOL 5 MG CAP PO SCH ×2 (10:34→15:42)
[2018-02-26 12:00] VITALS: BP 121/85; PULSE 106; RESP 17; TEMP 97.8; O2SAT 98
[2018-02-26 16:00] VITALS: BP 130/61; PULSE 106; RESP 17; TEMP 97.8; O2SAT 97
[2018-02-26 20:00] VITALS: BP 112/68; PULSE 108; RESP 22; TEMP 98.4; O2SAT 97
[2018-02-26] MEDS: QUEtiapine FUMARATE 25 MG TAB PO SCH (20:46)
[2018-02-27] VITALS: BP 131/66; PULSE 105; RESP 22; TEMP 98.1; O2SAT 97
[2018-02-27 04:00] VITALS: BP 133/62; PULSE 95; RESP 17; TEMP 97.8; O2SAT 97
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
[2018-02-27 08:00] VITALS: BP 111/73; PULSE 97; RESP 18; TEMP 97.6; O2SAT 97
[2018-02-27] MEDS: DOCUSATE SODIUM 50 MG/SENNA 8.6 MG TAB PO SCH ×2 (09:07→21:13)
[2018-02-27] MEDS: MEGESTROL ACETATE 40 MG TAB PO SCH ×2 (09:07→21:13)
[2018-02-27] MEDS: SODIUM CHLORIDE 0.9% FLUSH 10 ML FLUSH IV FLUSH SCH ×2 (09:07→21:14)
[2018-02-27] MEDS: LACTULOSE SYRUP 20 GM/30 ML CUP PO PRN (09:08)
[2018-02-27] MEDS: ACETAMINOPHEN 325 MG TAB PO PRN (09:08)
[2018-02-27] MEDS: DRONABINOL 5 MG CAP PO SCH ×2 (10:48→15:57)
[2018-02-27 12:00] VITALS: BP 109/59; PULSE 105; RESP 18; TEMP 98; O2SAT 97
[2018-02-27 16:00] VITALS: BP 136/80; PULSE 107; RESP 18; TEMP 98; O2SAT 97
[2018-02-27 20:00] VITALS: BP 131/66; PULSE 102; RESP 22; TEMP 97.9; O2SAT 98
[2018-02-27] MEDS: QUEtiapine FUMARATE 25 MG TAB PO SCH (21:13)
[2018-02-28] VITALS: BP 115/72; PULSE 107; RESP 22; TEMP 98.8; O2SAT 97
[2018-02-28 04:00] VITALS: BP 130/67; PULSE 110; RESP 22; TEMP 97.8; O2SAT 96
[2018-02-28] MEDS: MEGESTROL ACETATE 40 MG TAB PO SCH ×2 (08:08→21:58)
[2018-02-28] MEDS: SODIUM CHLORIDE 0.9% FLUSH 10 ML FLUSH IV FLUSH SCH ×2 (08:08→21:58)
[2018-02-28] MEDS: DOCUSATE SODIUM 50 MG/SENNA 8.6 MG TAB PO SCH ×2 (08:08→21:58)
[2018-02-28 08:44] VITALS: BP 135/67; PULSE 101; RESP 22; TEMP 98.7; O2SAT 96
[2018-02-28] MEDS: DRONABINOL 5 MG CAP PO SCH ×2 (10:11→15:27)
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
[2018-02-28] MEDS ORDERED: Albuterol-Ipratropium Neb NEB (11:40)
[2018-02-28] MEDS ORDERED: DRON5CAP PO (11:40)
[2018-02-28] MEDS ORDERED: SERO25TA PO (11:40)
[2018-02-28] MEDS ORDERED: MEGE40TA PO (11:40)
[2018-02-28 12:00] VITALS: BP 126/70; PULSE 97; RESP 20; TEMP 98.8; O2SAT 97
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
[2018-02-28 16:00] VITALS: BP 117/62; PULSE 98; RESP 20; TEMP 98.8; O2SAT 98
[2018-02-28 20:00] VITALS: BP 122/65; PULSE 94; RESP 16; TEMP 98.2; O2SAT 99
[2018-02-28] MEDS: QUEtiapine FUMARATE 25 MG TAB PO SCH (21:58)
[2018-03-01] VITALS: BP 119/60; PULSE 92; RESP 18; TEMP 98; O2SAT 99
[2018-03-01 04:00] VITALS: BP 120/62; PULSE 57; RESP 16; TEMP 98.2; O2SAT 95
[2018-03-01 08:00] VITALS: BP 121/72; PULSE 106; RESP 17; TEMP 97.9; O2SAT 97
[2018-03-01] MEDS: MEGESTROL ACETATE 40 MG TAB PO SCH ×2 (08:32→22:33)
[2018-03-01] MEDS: SODIUM CHLORIDE 0.9% FLUSH 10 ML FLUSH IV FLUSH SCH ×2 (08:33→22:33)
[2018-03-01] MEDS: DOCUSATE SODIUM 50 MG/SENNA 8.6 MG TAB PO SCH ×2 (08:33→22:33)
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
[2018-03-01] MEDS: DRONABINOL 5 MG CAP PO SCH ×2 (10:53→17:35)
[2018-03-01 12:00] VITALS: BP 127/70; PULSE 102; RESP 20; TEMP 98.1; O2SAT 98
[2018-03-01 16:00] VITALS: BP 120/69; PULSE 98; RESP 18; TEMP 98.1; O2SAT 99
[2018-03-01 20:00] VITALS: BP 99/55; PULSE 112; RESP 18; TEMP 98.6; O2SAT 97
[2018-03-01] MEDS: QUEtiapine FUMARATE 25 MG TAB PO SCH (22:33)
[2018-03-02 00:31] VITALS: BP 105/66; PULSE 120; RESP 19; TEMP 98.6; O2SAT 95
[2018-03-02 04:40] VITALS: BP 119/87; PULSE 112; RESP 18; TEMP 98.4; O2SAT 94
[2018-03-02] MEDS: LACTULOSE SYRUP 20 GM/30 ML CUP PO PRN ×2 (06:42→19:54)
[2018-03-02 08:00] VITALS: BP 127/68; PULSE 95; RESP 20; TEMP 98.2; O2SAT 95
[2018-03-02] MEDS: DOCUSATE SODIUM 50 MG/SENNA 8.6 MG TAB PO SCH ×2 (08:37→19:54)
[2018-03-02] MEDS: MEGESTROL ACETATE 40 MG TAB PO SCH ×2 (08:37→19:54)
[2018-03-02] MEDS: SODIUM CHLORIDE 0.9% FLUSH 10 ML FLUSH IV FLUSH SCH ×2 (08:41→19:54)
[2018-03-02] MEDS: DRONABINOL 5 MG CAP PO SCH ×2 (11:47→15:31)
[2018-03-02 12:00] VITALS: BP 129/70; PULSE 105; RESP 18; TEMP 98.3; O2SAT 98
[2018-03-02 16:00] VITALS: BP 107/70; PULSE 104; RESP 18; TEMP 98.2; O2SAT 98
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
[2018-03-02] MEDS: QUEtiapine FUMARATE 25 MG TAB PO SCH (19:54)
[2018-03-02 20:59] VITALS: BP 123/72; PULSE 100; RESP 18; TEMP 98.1; O2SAT 97
[2018-03-03] VITALS (9 sets, daily range): BP systolic 107–148; BP diastolic 67–90; PULSE 111–127; RESP 16–20; TEMP 97.1–98.4; O2SAT 95–98
[2018-03-03] MEDS: BISACODYL 10 MG SUPP RECTAL PRN (06:30)
[2018-03-03 07:11] LABS: HEMATOCRIT 38.4 % (35.0-46.0); HEMOGLOBIN 12.8 GM/DL (11.6-15.3); MEAN CELL VOLUME 94.7 FL (80.0-100.0); MEAN CORPUSCULAR HEMOGLOBIN 31.6 PG (27.0-34.0); MEAN CORPUSCULAR HGB CONC 33.3 % (32.0-36.0); MEAN PLATELET VOLUME 8.8 FL (7.0-11.0); PLATELET COUNT 279 TH/MM3 (150-450); RED BLOOD COUNT 4.05 MIL/MM3 (4.00-5.30); RED CELL DISTRIBUTION WIDTH 12.9 % (11.6-17.2); WHITE BLOOD COUNT 8.5 TH/MM3 (4.0-11.0)
[2018-03-03 07:33] LABS: BICARBONATE 29.5 MEQ/L (21.0-32.0); CALCIUM 9.7 MG/DL (8.5-10.1); CREATININE 0.61 MG/DL (0.50-1.00); MAGNESIUM 2.5 MG/DL (1.5-2.5); PHOSPHORUS 3.3 MG/DL (2.5-4.9)
[2018-03-03] MEDS: DOCUSATE SODIUM 50 MG/SENNA 8.6 MG TAB PO SCH ×2 (08:21→22:02)
[2018-03-03] MEDS: SODIUM CHLORIDE 0.9% FLUSH 10 ML FLUSH IV FLUSH SCH ×2 (08:21→22:02)
[2018-03-03] MEDS: MEGESTROL ACETATE 40 MG TAB PO SCH ×2 (08:21→22:02)
[2018-03-03] MEDS: DRONABINOL 5 MG CAP PO SCH ×2 (12:30→16:51)
[2018-03-03] MEDS ORDERED: POTASSIUM CHLORIDE 10 MEQ CONTROLLED RELEASE TAB PO ONE (13:45)
[2018-03-03] MEDS ORDERED: POTASSIUM CHLORIDE 25 MEQ EFFERVESCENT TAB PO ONE (14:45)
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
[2018-03-03] MEDS: QUEtiapine FUMARATE 25 MG TAB PO SCH (22:02)
[2018-03-04] VITALS: BP 118/65; PULSE 89; RESP 19; TEMP 97.6; O2SAT 97
[2018-03-04 04:00] VITALS: BP 122/69; PULSE 105; RESP 20; TEMP 98.3; O2SAT 96
[2018-03-04 08:00] VITALS: BP 139/87; PULSE 114; RESP 19; TEMP 97.8; O2SAT 96
[2018-03-04] MEDS: DOCUSATE SODIUM 50 MG/SENNA 8.6 MG TAB PO SCH ×2 (09:00→21:00)
[2018-03-04] MEDS: MEGESTROL ACETATE 40 MG TAB PO SCH ×2 (10:09→23:39)
[2018-03-04] MEDS: SODIUM CHLORIDE 0.9% FLUSH 10 ML FLUSH IV FLUSH SCH ×2 (10:15→23:40)
[2018-03-04 12:00] VITALS: BP 152/70; PULSE 114; RESP 18; TEMP 97.8; O2SAT 98
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
[2018-03-04] MEDS: DRONABINOL 5 MG CAP PO SCH ×2 (13:23→23:40)
[2018-03-04 15:28] LABS: BICARBONATE 28.2 MEQ/L (21.0-32.0); CALCIUM 10.5 MG/DL (8.5-10.1); CREATININE 0.79 MG/DL (0.50-1.00)
[2018-03-04 16:00] VITALS: BP 144/74; PULSE 119; RESP 20; TEMP 98.8; O2SAT 96
--- NOTE | 2018-03-04 19:28 | EKG ---
Date Performed: 03/03/2018 Time Performed: 15:35:44 PTAGE: 82 years EKG: SINUS TACHYCARDIA WITH SHORT WY INTERVAL ABNORMAL RHYTHM ECG Compared to PREVIOUS TRACING , the patient is now tachycardia and the axis has changed. Clinical carlos elation is recommended. PREVIOUS TRACIN02/06/2018 17.34 DOCTOR: Gabriella Burr Interpretating Date/Time 03/04/2018 19:27:14
[2018-03-04 21:00] VITALS: BP 120/80; PULSE 101; RESP 18; TEMP 98.9; O2SAT 97
[2018-03-04] MEDS: QUEtiapine FUMARATE 25 MG TAB PO SCH (23:39)
[2018-03-05 08:21] VITALS: BP 156/83; PULSE 113; RESP 18; TEMP 98.1; O2SAT 95
[2018-03-05] MEDS: DOCUSATE SODIUM 50 MG/SENNA 8.6 MG TAB PO SCH ×2 (09:00→21:56)
[2018-03-05] MEDS: MEGESTROL ACETATE 40 MG TAB PO SCH ×2 (09:02→21:56)
[2018-03-05] MEDS: SODIUM CHLORIDE 0.9% FLUSH 10 ML FLUSH IV FLUSH SCH ×2 (09:02→21:56)
[2018-03-05] MEDS: LORazepam 2 MG/ML VIAL IV PUSH PRN (09:07)
[2018-03-05] MEDS: DRONABINOL 5 MG CAP PO SCH ×2 (11:59→17:34)
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
[2018-03-05 20:00] VITALS: BP 140/77; PULSE 100; RESP 18; TEMP 97.4; O2SAT 97
[2018-03-05] MEDS: QUEtiapine FUMARATE 25 MG TAB PO SCH (21:56)
[2018-03-06 00:44] VITALS: BP 127/71; PULSE 121; RESP 18; TEMP 97.8; O2SAT 96
[2018-03-06 05:24] VITALS: BP 129/74; PULSE 119; RESP 18; TEMP 97.9; O2SAT 96
[2018-03-06 07:52] VITALS: BP 126/72; PULSE 112; RESP 18; TEMP 97.8; O2SAT 95
[2018-03-06] MEDS: DOCUSATE SODIUM 50 MG/SENNA 8.6 MG TAB PO SCH ×2 (09:00→21:00)
[2018-03-06] MEDS: MEGESTROL ACETATE 40 MG TAB PO SCH ×2 (09:01→21:41)
[2018-03-06] MEDS: SODIUM CHLORIDE 0.9% FLUSH 10 ML FLUSH IV FLUSH SCH ×2 (09:02→21:41)
[2018-03-06] MEDS: DRONABINOL 5 MG CAP PO SCH ×2 (11:52→16:22)
[2018-03-06 12:12] VITALS: BP 125/65; PULSE 113; RESP 18; TEMP 98.2; O2SAT 98
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
[2018-03-06 16:09] VITALS: BP 133/73; PULSE 111; RESP 18; TEMP 98.8; O2SAT 100
[2018-03-06 21:08] VITALS: BP 113/63; PULSE 101; RESP 18; TEMP 97.8; O2SAT 96
[2018-03-06] MEDS: QUEtiapine FUMARATE 25 MG TAB PO SCH (21:41)
[2018-03-06] MEDS: LORazepam 2 MG/ML VIAL IV PUSH PRN (21:41)
[2018-03-07 01:04] VITALS: BP 123/85; PULSE 111; RESP 18; TEMP 97.8; O2SAT 96
[2018-03-07 04:31] VITALS: BP 114/81; PULSE 107; RESP 18; TEMP 97.6; O2SAT 97
[2018-03-07 08:29] VITALS: BP 112/82; PULSE 105; RESP 18; TEMP 98.5; O2SAT 98
[2018-03-07] MEDS: DOCUSATE SODIUM 50 MG/SENNA 8.6 MG TAB PO SCH ×2 (09:17→22:26)
[2018-03-07] MEDS: MEGESTROL ACETATE 40 MG TAB PO SCH ×2 (09:17→22:26)
[2018-03-07] MEDS: DRONABINOL 5 MG CAP PO SCH ×2 (10:49→17:13)
[2018-03-07] MEDS: SODIUM CHLORIDE 0.9% FLUSH 10 ML FLUSH IV FLUSH SCH ×2 (10:49→22:26)
--- NOTE | 2018-03-07 11:58 | HHI.HCPN ---
Reason for visit a. To assist with evaluation and management of symptoms including: Debility , decreased oral intake. b. To assist medical decision maker(s) with: better understanding of current medical conditions; weighing benefits/burdens of medical treatment options; making medical treatment decisions. . Subjective/Interval History Plan of care follow-up for further clarifications of goals of care. Patient seen in her room, awake and alert. Patient is a Serbian speaker, visit conducted in Serbian. Patient was noted restless, tearful. Mumbling random words in Serbian, not making much sense. Patient of soft wrist restraints, she was noted incontinent of bladder. Nursing staff notified. Most recent laboratory workup 03/03 revealing WBC 8.5, Hgb stable at 12.8. BUN/creatinine 34 /0.79. No new imaging for review. Patient remains febrile, tachycardic with heart rate in the low 110s. Tolerating room air with oxygen saturation in the mid to high 90s. Marketing Co Op following. Less review 03/02, patient able to meet her caloric needs with oral intake to include nutritional supplements. Patient severely cachectic and deconditioned. Case discussed with Dr. Rudd. . Family/friend interactions Telephone conversation with patient's son Devonte who is patient's healthcare proxy decision maker. Medical update provided. Reviewed the patient appears more debilitated and confused during my visit today. Reviewed again likely trajectory of illness, patient currently with severe dementia. Reviewed likely prognosis of less than 6 months given severe dementia, cachexia and profound physical deconditioning. Reviewed hospice philosophy, benefits and eligibility criteria. Son reports that he has not seen his mother for approximately 2 months, he lives in [place]. 3 nieces (pt's granddaughters) visit patient often. Granddaughter Cindi was updated over the weekend by Dr. Rudd. Son Devonte was encouraged to discussed goals of care with additional family members , appears more receptive to hospice. Palliative care will continue to follow up. . Advance Directives Living Will: Never completed Health Care Surrogate: Never completed Durable Power of Office Systems Technology Instructor: Never completed Advance Directive Specifics Health Care Surrogate(s): In the absence of advance directives, healthcare proxy decision making would fall to the majority of patient's children, reports of patient having 2 sons. One son Julius with TBI, incapacitated for medical decision-making. Therefore, healthcare proxy decision making falls to patient's son Devonte. . Significant change in goals: Goals of treatment remain aggressive. . Objective Vital Signs Date Time Temp Pulse Resp B/P (MAP) Pulse Ox O2 Delivery O2 Flow Rate FiO2 03/07/18 08:29 98.5 105 18 112/82 (92) 98 03/07/18 04:31 97.6 107 18 114/81 (92) 97 03/07/18 01:04 97.8 111 18 123/85 (98) 96 03/06/18 21:08 97.8 101 18 113/63 (80) 96 03/06/18 16:09 98.8 111 18 133/73 (93) 100 03/06/18 12:12 98.2 113 18 125/65 (85) 98 Intake & Output 03/07/18 03/07/18 07:00 19:00 # Voids 2 # Bowel Movements 1 Physical Exam CONSTITUTIONAL/GENERAL: This is a thin, frail-looking female in no acute distress. Cachectic. TUBES/LINES/DRAINS: PIV. SKIN: No jaundice, rashes, or lesions. Ecchymoses on upper extremities, left lower extremity. No wounds seen anteriorly. Skin temperature appropriate. Not diaphoretic. HEAD: Atraumatic. Normocephalic. EYES: Pupils equal and round and reactive. Extraocular motions intact. No scleral icterus. No injection or drainage ENT: Hearing grossly normal. Nose without bleeding or purulent drainage. Moist oral mucosa. NECK: Trachea midline. Supple, nontender. CARDIOVASCULAR: Tachycardic with heart rate in the 110s. No JVD. Peripheral pulses symmetric. RESPIRATORY/CHEST: Symmetric, unlabored respirations. Clear to auscultation. Breath sounds equal bilaterally. GASTROINTESTINAL: Abdomen soft, non-tender, nondistended. No guarding. Bowel sounds present. GENITOURINARY: Without palpable bladder distension. MUSCULOSKELETAL: Extremities without clubbing, cyanosis, or edema. No mottling or clubbing. Muscle atrophy to all 4 extremities, cachectic. NEUROLOGICAL: Awake, alert. Confused. Verbal, repetitive speech. Mostly nonsensical. PSYCHIATRIC: Restless, tearful. . 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 She is single, several years ago. It is reported that she has 2 sons, one residing locally and one in [place]. Patient has 3 granddaughters who reside locally. Spiritual: Gnosticist. Legal: No advance directives completed. Ethical issues impacting care: No ethical issues identified. . Important Contacts Son/HCP Devonte Brewer . Granddaughter Lucía Mckeon Granddaughter Jessica Mckeon Granddaughter Adria Mckeon . Prognosis Mrs. Cobb is an 82-year-old female with a medical history significant for dementia with behavioral disturbances, hard of hearing and anxiety. Patient presented to emergency room on 02/06/18 for evaluation secondary to mechanical fall resulting in head injury. Head CT revealing small linear area of suspected subarachnoid hemorrhage in the right inferior parietal lobe, atrophy and nasal bone fractures -age unknown. Neurosurgery consulted, recommending medical management/monitoring. Patient with severe dementia and failure to thrive. Patient's BMI is 13.8, minimal oral intake for the past few weeks. Patient at high risk for further complications, continued decline and . . Code Status: Full Code Plan * CODE STATUS: Full code. Risks, benefits and limitations of CPR, intubation and mechanical ventilation discussed with patient's son at [facility] given patient 's severe dementia. * HEALTHCARE DECISION-MAKING: Patient unable to participating medical decision- making secondary to severe dementia, she will not regain decision-making capacity. Family reports that no advance directives have been completed. In the absence of advance directives, healthcare proxy decision making would fall to the majority of patient's children, for which patient has 2 sons. Son Julius with TBI, incapacitated for medical decision-making. Therefore, healthcare proxy decision making falls to patient's son Devonte Brewer. Devonte has accepted this role and is fully supported by additional family members. * GOALS OF CARE: 03/07/18 -As per patient's son Devonte acting as healthcare proxy decision maker, goals of therapy remain aggressive at this time to include FULL code. Telephone conversation with patient's son Devonte who is patient's healthcare proxy decision maker. Reviewed the patient appears more debilitated and confused during my visit today. Reviewed again likely trajectory of illness in the setting of severe dementia. Reviewed likely prognosis of less than 6 months given severe dementia, cachexia and profound physical deconditioning. Reviewed hospice philosophy, benefits and eligibility criteria. Son reports that he has not seen his mother for approximately 2 months, he lives in [place]. 3 nieces (pt's granddaughters) visit patient often. Granddaughter Cindi was updated over the weekend by Dr. uRdd. Son Devonte was encouraged to discussed goals of care with additional family members , appears more receptive to hospice. Palliative care will continue to follow up. * SYMPTOMS: = Agitation: Dementia with behavioral disturbances. Psych following , currently on Seroquel 25 mg at bedtime. Lorazepam 1 mg available as needed. = Progressive weight loss: Patient with BMI of 13.8. Currently on Marinol 2.5mg BID. Nutrition is following, last note 03/02/18, patient meeting her nutritional needs with p.o. intake and nutritional supplements. * Case discussed with Dr. Rudd. * Palliative care contact information has been provided to family. * Palliative care will continue to follow up for further clarification of goals of care as patient's clinical course continues to evolve. . Time Spent Total Floor Time (mins): 36 (Total time to include review of medical records since last visit, physical exam, goals of care conversation with patient's son, case discussion with attending.) >50% Counseling/Coord of Care: Yes Attestation To help prompt me to consider important information that might be impacting today's encounter and assessment, information from prior notes written by myself or my colleagues may have been "brought forward" into today's note. My signature on this note, however, is an attestation that I personally performed the exam, history, and/or decision-making noted today, and, unless otherwise indicated, the interactions with patient, family, and staff as well as the review of records all occurred today. I also attest that the listed assessment and stated plan reflect my best clinical judgment today based on the combination of historical information, prior notes, and today's exam/ interactions. When time spent is documented, it refers only to time spent today by the signer, or if indicated, combined time spent today by collaborating physician/nurse practitioner. Gabrielle Toribio March 07, 2018 11:58
[2018-03-07 12:30] VITALS: BP_SYST 113; BP_SYST 118; BP_DIAS 58; BP_DIAS 65; PULSE 120; RESP 18; TEMP 98; O2SAT 96
[2018-03-07 16:17] VITALS: BP 120/77; PULSE 118; RESP 18; TEMP 98; O2SAT 96
--- NOTE | 2018-03-07 17:03 | HHI.PR ---
Subjective Remarks Patient unchanged. Unable to provide history. No immediate changes overnight. Objective Vital Signs Date Time Temp Pulse Resp B/P (MAP) Pulse Ox O2 Delivery O2 Flow Rate FiO2 03/07/18 16:17 98.0 118 18 120/77 (91) 96 03/07/18 12:30 98.0 120 18 113/65 (81) 96 118/58 (78) 03/07/18 08:29 98.5 105 18 112/82 (92) 98 03/07/18 04:31 97.6 107 18 114/81 (92) 97 03/07/18 01:04 97.8 111 18 123/85 (98) 96 03/06/18 21:08 97.8 101 18 113/63 (80) 96 I/O 03/06/18 03/06/18 03/06/18 03/07/18 03/07/18 03/07/18 07:00 15:00 23:00 07:00 15:00 23:00 # Voids 2 4 1 # Bowel Movements 1 Result Diagram: 03/03/18 0624 03/04/18 1400 Objective Remarks GENERAL: NAD, A&Ox0 HEAD: Normocephalic. NECK: Supple, trachea midline. No lymphadenopathy. EYES: No scleral icterus. No injection or drainage. CARDIOVASCULAR: Regular rate and rhythm without murmurs, gallops, or rubs. RESPIRATORY: Breath sounds equal bilaterally. No accessory muscle use. GASTROINTESTINAL: Abdomen soft, non-tender, nondistended. MUSCULOSKELETAL: No cyanosis, or edema. SKIN: Warm and dry. NEURO: No focal neurological deficitis. A/P Problem List: (1) Dementia with aggressive behavior ICD Code: F03.91 - Unspecified dementia with behavioral disturbance Status: Chronic (2) SAH (subarachnoid hemorrhage) ICD Code: I60.9 - Nontraumatic subarachnoid hemorrhage, unspecified Status: Acute (3) Failure to thrive in adult ICD Code: R62.7 - Adult failure to thrive (4) Physical deconditioning ICD Code: R53.81 - Other malaise (5) Debility ICD Code: R53.81 - Other malaise Assessment and Plan 82 year old male admitted with fall, subarachnoid hemorrhage. Fall with subarachnoid hemorrhage Continue physical therapy Placement plan Poor p.o. intake, anorexia Continue Marinol Encourage p.o. treatment Family has declined option for PEG Fracture of left fourth middle phalanx Continue use of splint until healed Urinary tract infection Resolved Dementia with aggressive behavior Continue Seroquel Placement pending Hyponatremia Resolved hypokalemia Replace as needed DVT prophylaxis SCDs Discharge Planning Nursing facility placement versus hospice Julius Lucio MD March 07, 2018 17:03
[2018-03-07 20:00] VITALS: BP 118/73; PULSE 109; RESP 16; TEMP 98.2; O2SAT 98
[2018-03-07] MEDS: LORazepam 2 MG/ML VIAL IV PUSH PRN (22:25)
[2018-03-07] MEDS: QUEtiapine FUMARATE 25 MG TAB PO SCH (22:26)
[2018-03-08] VITALS: BP 126/67; PULSE 106; RESP 16; TEMP 98.1; O2SAT 94
[2018-03-08 04:00] VITALS: BP 116/58; PULSE 114; RESP 18; TEMP 98; O2SAT 97
[2018-03-08 07:15] LABS: AUTOMATED NEUTROPHIL # 10.4 TH/MM3 (1.8-7.7); BASOPHIL % 0.3 % (0.0-2.0); EOSINOPHIL # 0.2 TH/MM3 (0-0.4); EOSINOPHIL % 1.6 % (0.0-4.0); HEMATOCRIT 41.8 % (35.0-46.0); HEMOGLOBIN 14.3 GM/DL (11.6-15.3); LYMPH % 12.8 % (9.0-44.0); LYMPHOCYTE # 1.7 TH/MM3 (1.0-4.8); MEAN CELL VOLUME 93.7 FL (80.0-100.0); MEAN CORPUSCULAR HGB CONC 34.2 % (32.0-36.0); MEAN PLATELET VOLUME 9.6 FL (7.0-11.0); MONOCYTE # 1.1 TH/MM3 (0-0.9); NEUT % 77.3 % (16.0-70.0); PLATELET COUNT 272 TH/MM3 (150-450); RED BLOOD COUNT 4.46 MIL/MM3 (4.00-5.30); RED CELL DISTRIBUTION WIDTH 13.5 % (11.6-17.2); WHITE BLOOD COUNT 13.4 TH/MM3 (4.0-11.0)
[2018-03-08 07:45] LABS: ALBUMIN 3.7 GM/DL (3.4-5.0); ALT (GPT) 67 U/L (10-53); AST (GOT) 35 U/L (15-37); BICARBONATE 28.6 MEQ/L (21.0-32.0); BLOOD UREA NITROGEN 62 MG/DL (7-18); CALCIUM 10.3 MG/DL (8.5-10.1); CHLORIDE 115 MEQ/L (98-107); CREATININE 0.97 MG/DL (0.50-1.00); GLOMERULAR FILTRATION RATE 55 ML/MIN (>89); GLUCOSE,RANDOM 103 MG/DL (74-106); SODIUM (NA) 153 MEQ/L (136-145)
[2018-03-08 07:48] LABS: ALKALINE PHOSPHATASE 75 U/L (45-117); TOTAL BILIRUBIN ADULT 0.3 MG/DL (0.2-1.0); TOTAL PROTEIN 7.6 GM/DL (6.4-8.2)
[2018-03-08] MEDS: SODIUM CHLORIDE 0.9% FLUSH 10 ML FLUSH IV FLUSH SCH ×2 (09:00→21:27)
[2018-03-08 09:24] VITALS: BP 110/68; PULSE 117; RESP 20; TEMP 98.1; O2SAT 97
[2018-03-08] MEDS: MEGESTROL ACETATE 40 MG TAB PO SCH ×2 (09:45→21:00)
[2018-03-08] MEDS: DOCUSATE SODIUM 50 MG/SENNA 8.6 MG TAB PO SCH ×2 (09:46→21:00)
--- NOTE | 2018-03-08 10:59 | HHI.PR ---
Subjective Remarks Leukocytosis present since morning. Patient unchanged. Unable to provide history. No immediate changes overnight. Objective Vital Signs Date Time Temp Pulse Resp B/P (MAP) Pulse Ox O2 Delivery O2 Flow Rate FiO2 03/08/18 09:24 98.1 117 20 110/68 (82) 97 03/08/18 04:00 98.0 114 18 116/58 (77) 97 03/08/18 00:00 98.1 106 16 126/67 (86) 94 03/07/18 20:00 98.2 109 16 118/73 (88) 98 03/07/18 16:17 98.0 118 18 120/77 (91) 96 03/07/18 12:30 98.0 120 18 113/65 (81) 96 118/58 (78) I/O 03/07/18 03/07/18 03/07/18 03/08/18 03/08/18 03/08/18 07:00 15:00 23:00 07:00 15:00 23:00 # Voids 1 2 Result Diagram: 03/08/1837 03/08/18 0637 Objective Remarks GENERAL: NAD, A&Ox0 HEAD: Normocephalic. NECK: Supple, trachea midline. No lymphadenopathy. EYES: No scleral icterus. No injection or drainage. CARDIOVASCULAR: Regular rate and rhythm without murmurs, gallops, or rubs. RESPIRATORY: Breath sounds equal bilaterally. No accessory muscle use. GASTROINTESTINAL: Abdomen soft, non-tender, nondistended. MUSCULOSKELETAL: No cyanosis, or edema. SKIN: Warm and dry. NEURO: No focal neurological deficitis. A/P Problem List: (1) Dementia with aggressive behavior ICD Code: F03.91 - Unspecified dementia with behavioral disturbance Status: Chronic (2) SAH (subarachnoid hemorrhage) ICD Code: I60.9 - Nontraumatic subarachnoid hemorrhage, unspecified Status: Acute (3) Failure to thrive in adult ICD Code: R62.7 - Adult failure to thrive (4) Physical deconditioning ICD Code: R53.81 - Other malaise (5) Debility ICD Code: R53.81 - Other malaise Assessment and Plan 82 year old male admitted with fall, subarachnoid hemorrhage. Leukocytosis present this morning. Possible early infection. We will continue to monitor. Urinalysis and chest x-ray ordered. Fall with subarachnoid hemorrhage Continue physical therapy Placement plan Poor p.o. intake, anorexia Continue Marinol Encourage p.o. treatment Family has declined option for PEG Fracture of left fourth middle phalanx Continue use of splint until healed Urinary tract infection Resolved Dementia with aggressive behavior Continue Seroquel Placement pending Hyponatremia Resolved hypokalemia Replace as needed DVT prophylaxis SCDs Discharge Planning Nursing facility placement versus hospice Julius Lucio MD March 08, 2018 10:59
[2018-03-08 11:21] VITALS: BP 129/65; PULSE 122; RESP 20; TEMP 98.3; O2SAT 98
[2018-03-08] MEDS: DRONABINOL 5 MG CAP PO SCH ×2 (12:15→17:00)
--- NOTE | 2018-03-08 12:31 | RADRPT ---
EXAM DATE: 03/08/2018 12:11 PM EDT AGE/SEX: 82 years / Female INDICATIONS: Dyspnea. CLINICAL DATA: This is the patient's initial encounter. Patient reports that signs and symptoms have been present for 1 day and indicates a pain score of Nonresponsive. MEDICAL/SURGICAL HISTORY: . Alzheimer's None. COMPARISON: No prior exams available for comparison. FINDINGS: A single AP view of the chest demonstrates the lungs to be symmetrically aerated without evidence of mass, infiltrate or effusion. The cardiomediastinal contours are unremarkable. Osseous structures a re intact. CONCLUSION: No active disease. Electronically signed by: Sriram Rock MD 03/08/2018 12:30 PM EDT
[2018-03-08 13:33] LABS: AMORPHOUS SEDIMENT, URINE RARE; BACTERIA, URINE MANY /hpf; BILIRUBIN, URINE NEG (NEG); BLOOD, URINE SMALL (NEG); GLUCOSE,URINE NEG (NEG); HYALINE CAST, URINE 2 /lpf (RARE); KETONE, URINE TRACE mg/dL (NEG); MUCUS URINE MOD /lpf (OCC); NITRITE,URINE NEG (NEG); PH, URINE 5.5 (5.0-8.5); SQUAMOUS EPITHELIAL CELL URINE 1 /hpf (0-5); URINE COLOR YELLOW (YELLW/STRAW); URINE LEUKOCYTE ESTERASE LARGE (NEG); WHITE BLOOD CELL CLUMPS MANY
[2018-03-08 16:26] VITALS: BP 108/69; PULSE 115; RESP 20; TEMP 98.1; O2SAT 97
[2018-03-08 20:00] VITALS: BP 114/78; PULSE 116; RESP 18; TEMP 97.9; O2SAT 98
[2018-03-08] MEDS: QUEtiapine FUMARATE 25 MG TAB PO SCH (21:00)
[2018-03-08] MEDS: LORazepam 2 MG/ML VIAL IV PUSH PRN (21:27)
[2018-03-09] VITALS (9 sets, daily range): BP systolic 82–119; BP diastolic 64–72; PULSE 111–119; RESP 16–35; TEMP 96.5–98.9; O2SAT 86–100
[2018-03-09] MEDS ORDERED: SODIUM CHLORID 0.9% 500 ML INJ 500 ML IV ONE (02:00)
--- NOTE | 2018-03-09 02:27 | HHI.FPPN ---
Addendum to progress note ADDENDUM Reason for addendum: Additonal documentation Additional information S: Rigo was called at 2 am. 82 y/o F w/hx of failure to thrive and dementia presenting hypoxia. Admitted on 02/06 for SAH. Per nurse report, patient is usually active and talkative. 1 hour ago (@1 am) patient showed occasional agonal breathing. Was placed on 2 L simple mask, O2 sat was 100% but w/agonal breathing, became hypoxic to 84%. Was able to go to 92 -93%. BP was 82/64. Nurse reports that patient is not as talkative or alert tonight as usual. Had a U/A and CXR ordered this morning for leukocytosis seen on AM labs. Has been afebrile, has not reported pain. Has been eating very little and receives tube feeds. Received Ativan at 9:27 pm, which is one of her regular medications. O: HR 117, BP 105/72, pulse Ox 03% Gen: cachectic elderly woman unresponsive to questions, mouth-breathing w/ simple O2 mask at 2L Heart: RRR Resp: No use of accessory muscles. Clear to auscultation bilaterally, no rhonchi or crackles Abd: covers stomach w/arms during abdominal exam. Appears to have tenderness in the lower quadrants MSK: muscle wasting, very thin extremities. Normal tone and range of motion. No calf tenderness or swelling A/P: 82 y/o F w/hx of dementia presenting w/hypoxia. Symptoms have improved, no agonal breathing or hypoxia was further noted. Diff: Infection v PE v WA v electrolyte disturbance v EKG U/A from earlier today showed UTI. Urine cx is pending. Recommend IV abx Bedside glucose wnl - CBC, CMP, ABG, EKG - Continue O2 support and monitoring - Primary care team notified and agreed w/plan - I added D-dimer to rule out PE due to patient being at moderate risk Seen w/ Sandra Pearl MD R1 March 09, 2018 02:27
--- NOTE | 2018-03-09 02:30 | RADRPT ---
EXAM DATE: 03/09/2018 2:19 AM EDT AGE/SEX: 82 years / Female INDICATIONS: Shortness of breath. CLINICAL DATA: This is the patient's subsequent encounter. Patient reports that signs and symptoms h ave been present for 2 days and indicates a pain score of 0/10. MEDICAL/SURGICAL HISTORY: . Alzheimer's disease None. COMPARISON: [facility] [place], 03/08/2018. . FINDINGS: The lungs are clear without infiltrate, nodule, or mass. There is no appreciable pleural effusion fo r technique. Heart and mediastinum are unremarkable. CONCLUSION: No acute cardiopulmonary disease. Electronically signed by: Yeni Pratt MD 03/09/2018 2:29 AM EDT
[2018-03-09 02:50] LABS: BASOPHIL % 0.4 % (0.0-2.0); EOSINOPHIL # 0.1 TH/MM3 (0-0.4); EOSINOPHIL % 0.6 % (0.0-4.0); HEMATOCRIT 42.7 % (35.0-46.0); HEMOGLOBIN 14.3 GM/DL (11.6-15.3); LYMPH % 16.7 % (9.0-44.0); LYMPHOCYTE # 1.8 TH/MM3 (1.0-4.8); MEAN CELL VOLUME 94.4 FL (80.0-100.0); MEAN CORPUSCULAR HEMOGLOBIN 31.6 PG (27.0-34.0); MEAN CORPUSCULAR HGB CONC 33.4 % (32.0-36.0); MEAN PLATELET VOLUME 9.7 FL (7.0-11.0); MONO % 9.1 % (0.0-8.0); NEUT % 73.2 % (16.0-70.0); PLATELET COUNT 249 TH/MM3 (150-450); RED BLOOD COUNT 4.52 MIL/MM3 (4.00-5.30); RED CELL DISTRIBUTION WIDTH 13.5 % (11.6-17.2); WHITE BLOOD COUNT 10.9 TH/MM3 (4.0-11.0)
[2018-03-09 03:28] LABS: ALBUMIN 3.6 GM/DL (3.4-5.0); ALKALINE PHOSPHATASE 71 U/L (45-117); ALT (GPT) 72 U/L (10-53); AST (GOT) 35 U/L (15-37); BICARBONATE 30.3 MEQ/L (21.0-32.0); BLOOD UREA NITROGEN 72 MG/DL (7-18); CALCIUM 9.9 MG/DL (8.5-10.1); CHLORIDE 117 MEQ/L (98-107); CREATININE 1.25 MG/DL (0.50-1.00); GLOMERULAR FILTRATION RATE 41 ML/MIN (>89); GLUCOSE,RANDOM 124 MG/DL (74-106); TOTAL BILIRUBIN ADULT 0.4 MG/DL (0.2-1.0); TOTAL PROTEIN 7.5 GM/DL (6.4-8.2)
[2018-03-09 04:22] LABS: SODIUM (NA) 157 MEQ/L (136-145)
[2018-03-09] MEDS ORDERED: LACTATED RINGER'S 1000 ML INJ 500 ML IV SCH (06:30)
[2018-03-09] MEDS: SODIUM CHLORIDE 0.9% FLUSH 10 ML FLUSH IV FLUSH SCH (07:26)
[2018-03-09] MEDS: MEGESTROL ACETATE 40 MG TAB PO SCH (07:43)
[2018-03-09] MEDS: DOCUSATE SODIUM 50 MG/SENNA 8.6 MG TAB PO SCH (07:43)
[2018-03-09] MEDS ORDERED: SODIUM CHLOR 0.9% 1000 ML INJ 1,000 ML IV SCH (09:00)
--- NOTE | 2018-03-09 09:10 | HHI.PR ---
Subjective Remarks Emergency response event overnight due to hypotension and lethargy. D-dimer is elevated CTA pending. Hypernatremia present this morning. Objective Vital Signs Date Time Temp Pulse Resp B/P (MAP) Pulse Ox O2 Delivery O2 Flow Rate FiO2 03/09/18 08:00 98.9 113 16 119/72 (88) 100 03/09/18 04:00 98.1 113 18 108/69 (82) 100 03/09/18 02:02 119 25 105/72 (83) 97 03/09/18 02:00 98 6.00 03/09/18 01:58 117 35 82/64 (70) 97 03/09/18 01:55 96.5 113 33 97/64 (75) 86 03/09/18 00:00 98.0 112 18 97/64 (75) 94 03/08/18 20:00 97.9 116 18 114/78 (90) 98 03/08/18 16:26 98.1 115 20 108/69 (82) 97 03/08/18 11:21 98.3 122 20 129/65 (86) 98 03/08/18 09:24 98.1 117 20 110/68 (82) 97 I/O 03/08/18 03/08/18 03/08/18 03/09/18 03/09/18 03/09/18 07:00 15:00 23:00 07:00 15:00 23:00 Intake Total 120 ml Balance 120 ml Intake Oral 120 ml # Voids 2 2 Result Diagram: 03/09/18 0234 03/09/18 0810 Objective Remarks GENERAL: NAD, A&Ox0 HEAD: Normocephalic. NECK: Supple, trachea midline. No lymphadenopathy. EYES: No scleral icterus. No injection or drainage. CARDIOVASCULAR: Regular rate and rhythm without murmurs, gallops, or rubs. RESPIRATORY: Breath sounds equal bilaterally. No accessory muscle use. GASTROINTESTINAL: Abdomen soft, non-tender, nondistended. MUSCULOSKELETAL: No cyanosis, or edema. SKIN: Warm and dry. NEURO: No focal neurological deficitis. A/P Problem List: (1) Dementia with aggressive behavior ICD Code: F03.91 - Unspecified dementia with behavioral disturbance Status: Chronic (2) SAH (subarachnoid hemorrhage) ICD Code: I60.9 - Nontraumatic subarachnoid hemorrhage, unspecified Status: Acute (3) Failure to thrive in adult ICD Code: R62.7 - Adult failure to thrive (4) Physical deconditioning ICD Code: R53.81 - Other malaise (5) Debility ICD Code: R53.81 - Other malaise Assessment and Plan 82 year old male admitted with fall, subarachnoid hemorrhage. Hypernatremia present this morning. Family is investigating options for hospice care. IV Hydration and CTA of chest due to elevated D-dimer. We will continue to monitor. Fall with subarachnoid hemorrhage Continue physical therapy Placement plan Poor p.o. intake, anorexia Continue Marinol Encourage p.o. treatment Family has declined option for PEG Fracture of left fourth middle phalanx Continue use of splint until healed Urinary tract infection Resolved Dementia with aggressive behavior Continue Seroquel Placement pending Hyponatremia Resolved hypokalemia Replace as needed DVT prophylaxis SCDs Discharge Planning Nursing facility placement versus hospice Julius Lucio MD March 09, 2018 09:10
[2018-03-09] MEDS ORDERED: cefTRIAXone INJ 1,000 MG in SODIUM CHLORIDE 0.9% INJ 100 ML IV SCH (09:30)
[2018-03-09] MEDS ORDERED: IOHEXOL 350 MG/ML 10 ML VIAL (for RAD DIAG) IVCONTRAST ONE (10:11)
[2018-03-09] MEDS: DRONABINOL 5 MG CAP PO SCH ×2 (10:18→14:40)
--- NOTE | 2018-03-09 10:28 | RADRPT ---
EXAM DATE: 03/09/2018 10:14 AM EDT AGE/SEX: 82 years / Female INDICATIONS: Respiratory distress, elevated D-Dimer. Evaluate for pulmonary embolism. CLINICAL DATA: This is the patient's initial encounter. Patient reports that signs and symptoms have been present for 1 day and indicates a pain score of Nonresponsive. MEDICAL/SURGICAL HISTORY: . Alzheimer's. Non-responsive. RADIATION DOSE: 13.48 CTDI (mGy) COMPARISON: C, CHEST SINGLE AP, 03/09/2018. . TECHNIQUE: Volumetric scanning was performed using a multi-row detector CT scanner during bolus infu oj of 60 ml Omnipaque 350 (iohexol) nonionic water-soluble contrast as a single exam dose. The marija a was post processed with a variety of visualization algorithms including full volume maximum intensi ty projection and sliding thin slab reformation. Using automated exposure control and adjustment of the mA and/or kV according to patient size, radiation dose was kept as low as reasonably achievable t o obtain optimal diagnostic quality images. FINDINGS: Study is degraded by motion artifact. Pulmonary Arteries: No filling defects are seen in the pulmonary arteries out to the subsegmental ve ssels. The left and right pulmonary arteries are normal in diameter. Lung: There is a small patchy area of opacity in the left lower lobe best seen on axial image #66. T he lungs are hyperinflated with underlying emphysema. Effusion: None. Mediastinum: No evidence of mediastinal or hilar adenopathy. Other: The axilla is unremarkable. CONCLUSION: 1. The study is degraded by motion artifact. 2. No evidence of pulmonary embolism. 3. Small area of patchy opacity in the left lower lobe which could represent early pneumonia. 4. Underlying emphysema. Electronically signed by: Ho Whalen MD 03/09/2018 10:26 AM EDT
--- NOTE | 2018-03-09 15:31 | HHI.HCPN ---
Reason for visit a. To assist with evaluation and management of symptoms including: Debility , decreased oral intake, agitation. b. To assist medical decision maker(s) with: better understanding of current medical conditions; weighing benefits/burdens of medical treatment options; making medical treatment decisions. . Subjective/Interval History Patient seen for follow-up of goals of care, decreased p.o. intake, agitation, debility. Patient continues to have minimal oral intake in spite of appetite stimulants, Marinol and Megace. She continues to take bites and sips only with encouragement and assistance. Her oral intake so far today has been 120 mL. She continues to void adequately averaging 4-5 voids daily. Skin turgor is poor. PT reports that patient is not putting forth much effort in gait training and requires an approximate 2 minute rest every 10 feet. After ambulating 20 feet with a 2 minute rest, she became very lethargic and required assistance back to bed. And she had previously been ambulatory at home, this is a significant decline from her previous status. She remains mildly agitated, pulling at masks and requiring gauze wraps over IVs to prevent disruption. Overnight she required an emergency response event due to hypotension and lethargy. She was noted to be hypernatremic this morning with a sodium level of 157. She was found to have a new urinary tract infection today with her urine culture showing positive gram-negative rods. Antibiotics have been initiated pending culture. D-dimer elevated, CTA negative for PE. . Family/friend interactions Spoke with her son, Devonte, at length via telephone and reviewed her clinical course, the natural progression of dementia, the benefits and burden of feeding tubes and explained the logistics of cardiopulmonary resuscitation to include ventilator insertion and maintenance, wrist restraints to prevent dislodgment of tubes, course of anesthesia and the difficulty which would be encountered trying to wean his mother from the vent as her cognition is not adequate to be able to follow commands and understand instructions. We also discussed cardiopulmonary resuscitation and the risks and benefits associated with that. It was Devonte's observation that "if you need CPR, you should probably be healthy". He decided that she should be made a DO NOT RESUSCITATE status and requested no code. Status has been entered. He has multiple questions regarding options for placement in care of his mother and after all questions were answered, he determined that hospice would be her best alternative to continue the excellent standard of care that his nieces have been providing her at home. care companion, Ivory Cano, informed of families decision to transition to hospice/comfort. . Advance Directives Living Will: Never completed Health Care Surrogate: Never completed Durable Power of Facility Security Officer: Never completed Advance Directive Specifics Health Care Surrogate(s): In the absence of advance directives, healthcare proxy decision making would fall to the majority of patient's children, reports of patient having 2 sons. One son Julius with TBI, incapacitated for medical decision-making. Therefore, healthcare proxy decision making falls to patient's son Devonte. . Objective Vital Signs Date Time Temp Pulse Resp B/P (MAP) Pulse Ox O2 Delivery O2 Flow Rate FiO2 03/09/18 11:15 98.9 111 16 110/66 (81) 99 03/09/18 08:00 98.9 113 16 119/72 (88) 100 03/09/18 04:00 98.1 113 18 108/69 (82) 100 03/09/18 02:02 119 25 105/72 (83) 97 03/09/18 02:00 98 6.00 03/09/18 01:58 117 35 82/64 (70) 97 03/09/18 01:55 96.5 113 33 97/64 (75) 86 03/09/18 00:00 98.0 112 18 97/64 (75) 94 03/08/18 20:00 97.9 116 18 114/78 (90) 98 03/08/18 16:26 98.1 115 20 108/69 (82) 97 Intake & Output 03/09/18 03/09/18 07:00 19:00 Intake Total 100 ml Balance 100 ml IV Total 100 ml # Voids 2 2 Physical Exam CONSTITUTIONAL/GENERAL: This is a cachectic, frail-looking female in no acute distress. TUBES/LINES/DRAINS: PIV. SKIN: No jaundice, rashes, or lesions. Ecchymoses on upper extremities, left lower extremity. No wounds seen anteriorly. Skin temperature appropriate. Not diaphoretic. HEAD: Atraumatic. Normocephalic. EYES: Pupils equal and round and reactive. Extraocular motions intact. No scleral icterus. No injection or drainage ENT: Hearing diminished. Nose without bleeding or purulent drainage. Moist oral mucosa. NECK: Trachea midline. Supple, nontender. CARDIOVASCULAR: Tachycardic with heart rate in the 110s. No JVD. Peripheral pulses symmetric. RESPIRATORY/CHEST: Symmetric, unlabored respirations. Clear to auscultation. Breath sounds equal bilaterally. GASTROINTESTINAL: Abdomen soft, non-tender, nondistended. No guarding. Bowel sounds present. GENITOURINARY: Without palpable bladder distension. MUSCULOSKELETAL: Extremities without clubbing, cyanosis, or edema. No mottling or clubbing. Muscle atrophy to all 4 extremities, cachectic. NEUROLOGICAL: Awake, alert. Confused. PSYCHIATRIC: Agitated, restless. Pulling off oxygen mask. . Diagnostic Tests Laboratory Laboratory Tests Test 03/08/18 06:37 03/08/18 12:57 03/09/18 02:07 03/09/18 02:34 White Blood Count 13.4 TH/MM3 (4.0-11.0) 10.9 TH/MM3 (4.0-11.0) Red Blood Count 4.46 MIL/MM3 (4.00-5.30) 4.52 MIL/MM3 (4.00-5.30) Hemoglobin 14.3 GM/DL (11.6-15.3) 14.3 GM/DL (11.6-15.3) Hematocrit 41.8 % (35.0-46.0) 42.7 % (35.0-46.0) Mean Corpuscular Volume 93.7 FL (80.0-100.0) 94.4 FL (80.0-100.0) Mean Corpuscular Hemoglobin 32.0 PG (27.0-34.0) 31.6 PG (27.0-34.0) Mean Corpuscular Hemoglobin Concent 34.2 % (32.0-36.0) 33.4 % (32.0-36.0) Red Cell Distribution Width 13.5 % (11.6-17.2) 13.5 % (11.6-17.2) Platelet Count 272 TH/MM3 (150-450) 249 TH/MM3 (150-450) Mean Platelet Volume 9.6 FL (7.0-11.0) 9.7 FL (7.0-11.0) Neutrophils (%) (Auto) 77.3 % (16.0-70.0) 73.2 % (16.0-70.0) Lymphocytes (%) (Auto) 12.8 % (9.0-44.0) 16.7 % (9.0-44.0) Monocytes (%) (Auto) 8.0 % (0.0-8.0) 9.1 % (0.0-8.0) Eosinophils (%) (Auto) 1.6 % (0.0-4.0) 0.6 % (0.0-4.0) Basophils (%) (Auto) 0.3 % (0.0-2.0) 0.4 % (0.0-2.0) Neutrophils # (Auto) 10.4 TH/MM3 (1.8-7.7) 8.0 TH/MM3 (1.8-7.7) Lymphocytes # (Auto) 1.7 TH/MM3 (1.0-4.8) 1.8 TH/MM3 (1.0-4.8) Monocytes # (Auto) 1.1 TH/MM3 (0-0.9) 1.0 TH/MM3 (0-0.9) Eosinophils # (Auto) 0.2 TH/MM3 (0-0.4) 0.1 TH/MM3 (0-0.4) Basophils # (Auto) 0.0 TH/MM3 (0-0.2) 0.0 TH/MM3 (0-0.2) CBC Comment DIFF FINAL DIFF FINAL Differential Comment Blood Urea Nitrogen 62 MG/DL (7-18) 72 MG/DL (7-18) Creatinine 0.97 MG/DL (0.50-1.00) 1.25 MG/DL (0.50-1.00) Random Glucose 103 MG/DL (74-106) 124 MG/DL (74-106) Total Protein 7.6 GM/DL (6.4-8.2) 7.5 GM/DL (6.4-8.2) Albumin 3.7 GM/DL (3.4-5.0) 3.6 GM/DL (3.4-5.0) Calcium Level 10.3 MG/DL (8.5-10.1) 9.9 MG/DL (8.5-10.1) Alkaline Phosphatase 75 U/L (45-117) 71 U/L (45-117) Aspartate Amino Transf (AST/SGOT) 35 U/L (15-37) 35 U/L (15-37) Alanine Aminotransferase (ALT/SGPT) 67 U/L (10-53) 72 U/L (10-53) Total Bilirubin 0.3 MG/DL (0.2-1.0) 0.4 MG/DL (0.2-1.0) Sodium Level 153 MEQ/L (136-145) 157 MEQ/L (136-145) Potassium Level 3.7 MEQ/L (3.5-5.1) 4.0 MEQ/L (3.5-5.1) Chloride Level 115 MEQ/L (98-107) 117 MEQ/L (98-107) Carbon Dioxide Level 28.6 MEQ/L (21.0-32.0) 30.3 MEQ/L (21.0-32.0) Anion Gap 9 MEQ/L (5-15) 10 MEQ/L (5-15) Estimat Glomerular Filtration Rate 55 ML/MIN (>89) 41 ML/MIN (>89) Urine Color YELLOW (YELLW/STRAW) Urine Turbidity HAZY (CLEAR) Urine pH 5.5 (5.0-8.5) Urine Specific [place] 1.019 (1.002-1.035) Urine Protein TRACE mg/dL (NEG-TRACE) Urine Glucose (UA) NEG mg/dL (NEG) Urine Ketones TRACE mg/dL (NEG) Urine Occult Blood SMALL (NEG) Urine Nitrite NEG (NEG) Urine Bilirubin NEG (NEG) Urine Urobilinogen LESS THAN 2.0 MG/DL (LESS Urine Leukocyte Esterase LARGE (NEG) Urine RBC 1 /hpf (0-3) Urine WBC 61 /hpf (0-5) Urine WBC Clumps MANY (NONE) Urine Squamous Epithelial Cells 1 /hpf (0-5) Urine Amorphous Sediment RARE Urine Bacteria MANY /hpf (NONE) Urine Hyaline Casts 2 /lpf (RARE) Urine Mucus MOD /lpf (OCC) Microscopic Urinalysis Comment CATH-CULTURE IND Blood Gas Puncture Site RT RADIAL Blood Gas Patient Temperature 98.6 Blood Gas HCO3 29 mmol/L (22-26) Blood Gas Base Excess 5.1 mmol/L (-2-2) Blood Gas Oxygen Saturation 90 % (90-100) Arterial Blood pH 7.47 (7.380-7.420) Arterial Blood Partial Pressure CO2 40 mmHg (38-42) Arterial Blood Partial Pressure O2 68 mmHg (61-120) Arterial Blood Oxygen Content 17.9 Vol % (12.0-20.0) Arterial Blood Carboxyhemoglobin 1.1 % (0-4) Arterial Blood Methemoglobin 1.1 % (0-2) Blood Gas Hemoglobin 14.2 G/DL (12.0-16.0) Oxygen Delivery Device SIMPLE MASK Blood Gas Liter Flow 6 L/M Lactic Acid Level 1.4 mmol/L (0.4-2.0) Test 03/09/18 05:37 03/09/18 08:10 D-Dimer Quantitative (PE/DVT) 5.06 MG/L FEU (0.00-0.50) Sodium Level 157 MEQ/L (136-145) Result Diagram: 03/09/18 0234 03/09/18 0810 Microbiology Microbiology Date/Time Source Procedure Growth Status 03/08/18 12:57 Urine Catheterized Urine Urine Culture - Preliminary Gram Negative [place] Resulted Imaging Last Impressions Chest X-Ray 03/09/18 0000 Signed Impressions: CONCLUSION: No acute cardiopulmonary disease. CT Angiography 03/09/18 0000 Signed Impressions: CONCLUSION: 1. The study is degraded by motion artifact. 2. No evidence of pulmonary embolism. 3. Small area of patchy opacity in the left lower lobe which could represent e lavinia pneumonia. 4. Underlying emphysema. Head CT 02/14/18 0000 Signed Impressions: Service Date/Time: Wednesday, February 14, 2018 15:46 - CONCLUSION: 1. No acute abnormality or hemorrhage is seen. 2. Atrophy. Kevin Maurer MD Hand X-Ray 02/10/18 0000 Signed Impressions: Service Date/Time: February 11:58 - CONCLUSION: Nondisplaced fracture of the fourth middle phalanx. Ho Whalen MD Assessment and Plan Disease Oriented Problem List: (1) Dementia with aggressive behavior (2) Failure to thrive in adult (3) Cachexia (4) Decreased oral intake (5) SAH (subarachnoid hemorrhage) (6) Physical deconditioning Symptom Scale: (1) Debility 0-10 Scale: Unable to quantify (2) Decreased oral intake 0-10 Scale: Unable to quantify Pertinent Non-Medical Issues Psychosocial: Patient originally from [place]. She is single, several years ago. It is reported that she has 2 sons, one residing locally and one in [place]. Patient has 3 granddaughters who reside locally. Spiritual: Rastafarian. Legal: No advance directives completed. Ethical issues impacting care: No ethical issues identified. . Important Contacts Son/HCP Devonte Brewer . Granddaughter Lucía Mckeon Granddaughter Jessica Mckeon Granddaughter Adria Mckeon . Prognosis Mrs. Cobb is an 82-year-old female with a medical history significant for dementia with behavioral disturbances, hard of hearing and anxiety. Patient presented to emergency room on 02/06/18 for evaluation secondary to mechanical fall resulting in head injury. Head CT revealing small linear area of suspected subarachnoid hemorrhage in the right inferior parietal lobe, atrophy and nasal bone fractures -age unknown. Neurosurgery consulted, recommending medical management/monitoring. Patient with severe dementia and failure to thrive. Patient's BMI is 13.8, minimal oral intake for the past few weeks. Patient at high risk for further complications, continued decline and . . Code Status: No Code Plan * CODE STATUS: DO NOT RESUSCITATE. Risks, benefits and limitations of CPR, intubation and mechanical ventilation discussed with patient's son at [facility] given patient's severe dementia. * HEALTHCARE DECISION-MAKING: Patient unable to participating medical decision- making secondary to severe dementia, she will not regain decision-making capacity. Family reports that no advance directives have been completed. In the absence of advance directives, healthcare proxy decision making would fall to the majority of patient's children, for which patient has 2 sons. Son Julius with TBI, incapacitated for medical decision-making. Therefore, healthcare proxy decision making falls to patient's son Devonte Brewer. Devonte has accepted this role and is fully supported by additional family members. * GOALS OF CARE: 03/07/18 -As per patient's son Devonte acting as healthcare proxy decision maker, goals of therapy have transitioned to comfort and they have requested a DO NOT RESUSCITATE status. Telephone conversation held today with patient's son Devonte who is patient's healthcare proxy decision maker. Explained the patient's agitation, fear and discomfort due to worsening dementia and confusion. Reviewed signs and symptoms of decline in severe dementia. Reviewed hospice philosophy, benefits and eligibility criteria. Devonte reports that he has discussed this with his 3 nieces who have been providing care for his mother and his brother, who has a TBI, and they are in agreement with this decision. * SYMPTOMS: = * Agitation: Dementia with behavioral disturbances. Psych following, currently on Seroquel 25 mg at bedtime. Lorazepam 1 mg available as needed. * Poor oral intake/progressive weight loss: Previous BMI 13.8, today 12.2 kg/m . Currently on Marinol 2.5mg BID and Megace 40 mg twice daily. Nutrition is following, last note 03/02/18. * Debility: Making poor effort with physical therapy. Ambulated a total of 20 feet and required a 2 minute rest 10 feet, after which she became very lethargic and required assistance back to bed. Likely complicated by poor p.o. intake. * Palliative care contact information has been provided to family. * Palliative care will continue to follow up for further clarification of goals of care as patient's clinical course continues to evolve. . Nadja Singer March 09, 2018 3:31 pm
--- NOTE | 2018-03-09 17:23 | EKG ---
Date Performed: 03/09/2018 Time Performed: 07:39:57 PTAGE: 82 years EKG: SINUS TACHYCARDIA WITH SHORT HI INTERVAL NONSPECIFIC T-WAVE ABNORMALITY ABNORMAL RHYTHM ECG Since PREVIOUS TRACING , no significant change noted PREVIOUS TRACIN03/03/2018 15.35 DOCTOR: Gabriella Burr Interpretating Date/Time 03/09/2018 17:22:23
== END 2018-03-09 21:33 | disposition hospice, inpatient (51) | DRG 85 ==
LOC: NEPD 13:57 → NEDA 19:12 → N05B 20:51
PROVIDERS: ADMIT Hospitalist; ATTEND Hospitalist
DX: S06.6X0A Traumatic subarachnoid hemorrhage without loss of consciousness, initial encounter (principal); E43 Unspecified severe protein-calorie malnutrition; E87.0 Hyperosmolality and hypernatremia; R64 Cachexia; I95.9 Hypotension, unspecified; F02.81 Dementia in other diseases classified elsewhere, unspecified severity, with behavioral disturbance; G30.9 Alzheimer's disease, unspecified; N39.0 Urinary tract infection, site not specified; Z68.1 Body mass index [BMI] 19.9 or less, adult; E87.1 Hypo-osmolality and hyponatremia; E86.0 Dehydration; Z78.1 Physical restraint status; R62.7 Adult failure to thrive; W18.30XA Fall on same level, unspecified, initial encounter; H91.90 Unspecified hearing loss, unspecified ear; F41.9 Anxiety disorder, unspecified; S62.625A Displaced fracture of middle phalanx of left ring finger, initial encounter for closed fracture; E87.6 Hypokalemia; Z66 Do not resuscitate; R00.0 Tachycardia, unspecified; R06.82 Tachypnea, not elsewhere classified; I25.2 Old myocardial infarction; Z72.0 Tobacco use; T17.390A Other foreign object in larynx causing asphyxiation, initial encounter
CPT/HCPCS: 36600; 70450; 71045; 71275; 73130; 80048; 80053; 81001; 82306; 82607; 82805; 82948; 83605; 83735; 84100; 84132; 84295; 84443; 85025; 85027; 85379; 85610; 85730; 87077; 87086; 87186; 93005; 94640; 94664; 99285; J0696; J2060; J2405; J3480; J7030; J7040; J7070; Q0167; Q9967